=== PATIENT | male | born 1980 | race American Indian/Alaskan Native ===

== ENCOUNTER 2016-06-10 03:06 | Emergency (ER) | payer MEDICAID, OTHER ==
[2016-06-10 03:45] VITALS: BMI 26.6
--- NOTE | 2016-06-10 04:02 | ED PDOC ---
Arrival/HPI - General Chief Complaint: Psychiatric Evaluation Time Seen by Provider: 06/10/16 03:19 Historian: Patient - History of Present Illness Narrative History of Present Illness (Text): 06/10/16 04:02 Dereje Olson is a 35 year old male, with history of schizophrenia, anxiety, asthma, GERD, ETOH abuse and chronic back pain, presents to the emergency department for evaluation of auditory hallucinations. Admits to drinking alcohol "to block out the voices." Patient also reports of difficulty breathing while sleeping. Patient suggested to nursing staff that he wanted to hurt himself. Denies fever, chills, headache, dizziness, chest pain, nausea, vomiting , diarrhea, urinary symptoms, or any other complaints at this time. Time/Duration: 1-3 hours Symptom Onset: Gradual Symptom Course: Unchanged Severity Level: Mild Activities at Onset: Light Context: Home Past Medical History - Provider Review Nursing Documentation Reviewed: Yes - Infectious Disease Hx of Infectious Diseases: None - Tetanus Immunization Tetanus Immunization: Unknown - Cardiac Hx Cardiac Disorders: No Hx Hypertension: No - Pulmonary Hx Asthma: Yes - Neurological Hx Migraine: Yes - HEENT Hx HEENT Disorder: No - Renal Hx Renal Disorder: Yes Other/Comment: hx of kidney infection with sx. - Endocrine/Metabolic Hx Endocrine Disorders: No - Hematological/Oncological Hx Cancer: No - Integumentary Hx Dermatological Disorder: No - Musculoskeletal/Rheumatological Hx Musculoskeletal Disorders: No - Gastrointestinal Hx Gastrointestinal Disorders: No - Genitourinary/Gynecological Hx Sexually Transmitted Diseases: No - Psychiatric Hx Anxiety: Yes Hx Bipolar Disorder: Yes Hx Depression: Yes Hx Schizophrenia: Yes Hx Substance Use: Yes - Past Surgical History Past Surgical History: Non-Contributing - Surgical History Other/Comment: LEFT KIDNEY SX - Anesthesia Hx Anesthesia: Yes Hx Anesthesia Reactions: No - Suicidal Assessment Feels Threatened In Home Enviroment: No Family/Social History - Physician Review Nursing Documentation Reviewed: Yes Family/Social History: No Known Family HX Smoking Status: Heavy Smoker > 10 Cigarettes Daily Hx Alcohol Use: Yes Hx Substance Use: Yes Hx Substance Use Treatment: No Allergies/Home Meds Allergies/Adverse Reactions: Allergies No Known Allergies Allergy (Verified 06/10/16 03:44) Home Medications: Home Meds Medication Instructions Recorded Confirmed LORazepam [Ativan] 1 mg PO DAILY 05/19/16 05/19/16 Review of Systems - Physician Review All systems were reviewed & negative as marked: Yes - Review of Systems Constitutional: Normal. absent: Fatigue, Fevers Eyes: Normal Respiratory: Normal. absent: SOB, Cough Cardiovascular: Normal. absent: Chest Pain Neurological: Normal. absent: Headache, Dizziness Psychiatric: Suicidal Ideation, Other (auditory hallucinations ) Physical Exam Vital Signs Reviewed: Yes Vital Signs Temp Pulse Resp BP Pulse Ox 06/10/16 03:56 98.0 F 117 H 18 123/93 H 96 Temperature: Afebrile Blood Pressure: Normal Pulse: Tachycardic Respiratory Rate: Normal Appearance: Positive for: Well-Appearing, Non-Toxic, Comfortable Pain Distress: None Mental Status: Positive for: Alert and Oriented X 3 - Systems Exam Head: Present: Atraumatic, Normocephalic Pupils: Present: PERRL Extroacular Muscles: Present: EOMI Conjunctiva: Present: Normal Mouth: Present: Moist Mucous Membranes Respiratory/Chest: Present: Clear to Auscultation, Good Air Exchange. No: Respiratory Distress, Accessory Muscle Use Cardiovascular: Present: Regular Rate and Rhythm, Normal S1, S2. No: Murmurs Abdomen: Present: Normal Bowel Sounds. No: Tenderness, Distention, Peritoneal Signs Upper Extremity: Present: Normal Inspection. No: Cyanosis, Edema Lower Extremity: Present: Normal Inspection. No: Edema Neurological: Present: GCS=15, CN II-XII Intact, Speech Normal, Motor Func Grossly Intact, Normal Sensory Function Skin: Present: Warm, Dry, Normal Color. No: Rashes Psychiatric: Present: Alert, Oriented x 3, Suicidal Ideation, Hallucinations ( auditory) Medical Decision Making ED Course and Treatment: 06/10/16 04:14 Impression: A 35 year old male who presents to the emergency department for evaluation of auditory hallucinations and difficulty sleeping. Plan: -- EKG -- Labs -- Drug screen -- Chest X-ray -- Urinalysis -- Reassess and disposition Progress Notes: 06/10/16 05:56 Chest X-ray interpreted by me: No acute diseases EKG interpreted by me: NSR @ 89 bpm. Non specific T wave changes. - Lab Interpretations Lab Results: 06/10/16 04:10 06/10/16 04:10 Lab Results 06/10/16 04:34: Urine Color Yellow, Urine Appearance Clear, Urine pH 6.0, Ur Specific [place] 1.020, Urine Protein Negative, Urine Glucose (UA) Negative, Urine Ketones Negative, Urine Blood Negative, Urine Nitrate Negative, Urine Bilirubin Negative, Urine Urobilinogen 1.0 H, Ur Leukocyte Esterase Negative, Urine Opiates Screen Negative, Urine Methadone Screen Negative, Ur Barbiturates Screen Negative, Ur Phencyclidine Scrn Negative, Ur Amphetamines Screen Negative , U Benzodiazepines Scrn Negative, U Oth Cocaine Metabols Negative, U Cannabinoids Screen Negative 06/10/16 04:10: WBC 5.0, RBC 4.86, Hgb 15.4, Hct 42.7, MCV 87.9, MCH 31.7, MCHC 36.1, RDW 13.1, Plt Count 179, MPV 10.1, Gran % 41.8 L, Lymph % (Auto) 47.3 H, [place] % (Auto) 8.7 H, Eos % (Auto) 2.0, Baso % (Auto) 0.2, Gran # 2.08, Lymph # 2.4, [place] # 0.4, Eos # 0.1, Baso # 0.01, Sodium 144, Potassium 3.7, Chloride 104 , Carbon Dioxide 23, Anion Gap 21 H, BUN 7, Creatinine 1.1, Est GFR ( Amer) > 60, Est GFR (Non-Af Amer) > 60, Random Glucose 105, Calcium 9.0, Total Bilirubin 0.5, AST 34, ALT 23, Alkaline Phosphatase 51, Total Protein 8.0, Albumin 4.4, Globulin 3.6, Albumin/Globulin Ratio 1.2, Salicylates < 1 L, Acetaminophen < 10.0 L, Alcohol, Quantitative 169 H - RAD Interpretation Radiology Orders: 06/10/16 04:01 CHEST PORTABLE [RAD] Stat - Transfer of Care Patient signed out to Dr:: Janusz Other: sobriety/PES eval./final disposition - Scribe Statement Merlin Muhammad Provider Attestation: All medical record entries made by the Scribe were at my direction and personally dictated by me. I have reviewed the chart and agree that the record accurately reflects my personal performance of the history, physical exam, medical decision making, and the department course for this patient. I have also personally directed, reviewed, and agree with the discharge instructions and disposition. Disposition/Present on Arrival - Present on Arrival Any Indicators Present on Arrival: No History of DVT/PE: No History of Uncontrolled Diabetes: No Urinary Catheter: No History of Decub. Ulcer: No History Surgical Site Infection Following: None - Disposition Have Diagnosis and Disposition been Completed?: No Diagnosis: Schizophrenia, paranoid type Disposition Time: 07:00 Condition: STABLE
[2016-06-10 04:21] LABS: ADD MANUAL DIFF? NO
[2016-06-10 04:27] LABS: BASO # 0.01 K/mm3 (0.0-2.0); BASO % 0.2 % (0.0-3.0); EOS # 0.1 (0.0-0.7); GRAN # 2.08 (1.4-6.5); GRAN % 41.8 % (50.0-68.0); HEMATOCRIT 42.7 % (42.0-52.0); LYMPH # 2.4 (1.2-3.4); LYMPH % 47.3 % (22.0-35.0); MEAN CELL VOLUME 87.9 fL (80.0-105.0); MEAN CORPUSCULAR HEMOGLOBIN 31.7 pg (25.0-35.0); MEAN CORPUSCULAR HGB CONC 36.1 g/dl (31.0-37.0); MEAN PLATELET VOLUME 10.1 fl (7.0-11.0); MONO # 0.4 (0.1-0.6); MONO % 8.7 % (1.0-6.0); PLATELET COUNT 179 10^3/uL (120.0-450.0); RED CELL DISTRIBUTION WIDTH 13.1 % (11.5-14.5)
[2016-06-10 04:46] LABS: ALB/GLOB RATIO 1.2 (1.1-1.8); ALKALINE PHOSPHATASE 51 U/L (38-133); ALT/SGPT 23 U/L (7-56); AST/SGOT 34 U/L (15-59); BILIRUBIN,TOTAL 0.5 mg/dL (0.2-1.3); BLOOD UREA NITROGEN 7 mg/dL (7-21); CARBON DIOXIDE 23 mmol/L (21-33); CHLORIDE 104 mmol/L (95-110); GFR AFRICAN-AMERICAN > 60; GLUCOSE,RANDOM 105 mg/dL (70-110); POTASSIUM 3.7 mmol/L (3.6-5.0); SODIUM 144 mmol/L (132-148)
[2016-06-10 05:18] LABS: URINE BILIRUBIN NEGATIVE (NEGATIVE); URINE BLOOD NEGATIVE (NEGATIVE); URINE GLUCOSE (UA) NEGATIVE (NEGATIVE); URINE KETONE NEGATIVE (NEGATIVE); URINE LEUKOCYTE ESTERASE NEGATIVE Leu/uL (NEGATIVE); URINE PROTEIN NEGATIVE mg/dL (<30 mg/dL)
[2016-06-10 05:20] LABS: URINE APPEARANCE CLEAR (CLEAR); URINE COLOR YELLOW (YELLOW)
[2016-06-10 06:50] VITALS: O2SAT 99
--- NOTE | 2016-06-10 07:08 | ED PDOC ---
Physical Exam Vital Signs Reviewed: Yes Vital Signs Temp Pulse Resp BP Pulse Ox 06/10/16 08:23 98.2 F 88 18 130/80 99 06/10/16 07:20 80 16 129/77 99 06/10/16 06:49 84 16 114/67 99 06/10/16 03:56 98.0 F 117 H 18 123/93 H 96 Temperature: Afebrile Blood Pressure: Hypertensive Pulse: Tachycardic Respiratory Rate: Normal Medical Decision Making ED Course and Treatment: 06/10/16 07:07 Patient signed out to me by Dr. Reid at 07:00. Pending sobriety and PES evaluation. Patient has a history of schizophrenia, he presented for psychiatric evaluation of auditory hallucinations and suicidal ideation. Patient admitted to drinking alcohol. 06/10/16 08:45 Patient evaluated by PES and cleared for discharge. Outpatient f/u arranged. - Lab Interpretations Lab Results: 06/10/16 04:10 06/10/16 04:10 Lab Results 06/10/16 04:34: Urine Color Yellow, Urine Appearance Clear, Urine pH 6.0, Ur Specific [place] 1.020, Urine Protein Negative, Urine Glucose (UA) Negative, Urine Ketones Negative, Urine Blood Negative, Urine Nitrate Negative, Urine Bilirubin Negative, Urine Urobilinogen 1.0 H, Ur Leukocyte Esterase Negative, Urine Opiates Screen Negative, Urine Methadone Screen Negative, Ur Barbiturates Screen Negative, Ur Phencyclidine Scrn Negative, Ur Amphetamines Screen Negative , U Benzodiazepines Scrn Negative, U Oth Cocaine Metabols Negative, U Cannabinoids Screen Negative 06/10/16 04:10: WBC 5.0, RBC 4.86, Hgb 15.4, Hct 42.7, MCV 87.9, MCH 31.7, MCHC 36.1, RDW 13.1, Plt Count 179, MPV 10.1, Gran % 41.8 L, Lymph % (Auto) 47.3 H, [place] % (Auto) 8.7 H, Eos % (Auto) 2.0, Baso % (Auto) 0.2, Gran # 2.08, Lymph # 2.4, [place] # 0.4, Eos # 0.1, Baso # 0.01, Sodium 144, Potassium 3.7, Chloride 104 , Carbon Dioxide 23, Anion Gap 21 H, BUN 7, Creatinine 1.1, Est GFR ( Amer) > 60, Est GFR (Non-Af Amer) > 60, Random Glucose 105, Calcium 9.0, Total Bilirubin 0.5, AST 34, ALT 23, Alkaline Phosphatase 51, Total Protein 8.0, Albumin 4.4, Globulin 3.6, Albumin/Globulin Ratio 1.2, Salicylates < 1 L, Acetaminophen < 10.0 L, Alcohol, Quantitative 169 H - RAD Interpretation Radiology Orders: 06/10/16 04:01 CHEST PORTABLE [RAD] Stat - Scribe Statement The provider has reviewed the documentation as recorded by the Scribe Tram Gould Provider Scribe Attestation: All medical record entries made by the Scribe were at my direction and personally dictated by me. I have reviewed the chart and agree that the record accurately reflects my personal performance of the history, physical exam, medical decision making, and the department course for this patient. I have also personally directed, reviewed, and agree with the discharge instructions and disposition. Disposition/Present on Arrival - Present on Arrival Any Indicators Present on Arrival: No History of DVT/PE: No History of Uncontrolled Diabetes: No Urinary Catheter: No History of Decub. Ulcer: No History Surgical Site Infection Following: None - Disposition Have Diagnosis and Disposition been Completed?: Yes Diagnosis: Schizophrenia, paranoid type Disposition: HOME/ ROUTINE Disposition Time: 08:22 Patient Plan: Discharge Patient Problems: Current Active Problems Problem Status Diagnosed Schizophrenia, paranoid type Acute Condition: STABLE Discharge Instructions (ExitCare): Schizophrenia (ED)
--- NOTE | 2016-06-10 08:11 | RAD ---
HISTORY: medical clearance COMPARISON: 05/18/2016 FINDINGS: LUNGS: The lungs are well inflated and clear. PLEURA: No significant pleural effusion identified, no pneumothorax apparent. CARDIOVASCULAR: Normal. OSSEOUS STRUCTURES: No significant abnormalities. VISUALIZED UPPER ABDOMEN: Normal. OTHER FINDINGS: None. IMPRESSION: No active pulmonary disease.
[2016-06-10 08:24] VITALS: BP 130/80; PULSE 88; RESP 18; TEMP 98.2
--- NOTE | 2016-06-10 12:03 | CARD ---
APPROVED REPORT EKG Measurement Heart [id number] <Conclusion> Normal sinus rhythm Nonspecific T wave abnormality Abnormal ECG
== END 2016-06-10 08:25 | disposition home or self-care (01) ==
LOC: ED 03:06
DX: F20.0 Paranoid schizophrenia (principal); F41.9 Anxiety disorder, unspecified; F32.9 Major depressive disorder, single episode, unspecified

== ENCOUNTER 2016-07-27 14:34 | Observation (INO) | payer OTHER ==
[2016-07-27 14:35] VITALS: BMI 26.6
[2016-07-27 14:53] VITALS: TEMP 98
[2016-07-27 15:23] VITALS: O2SAT 98
[2016-07-27 16:57] LABS: URINE BILIRUBIN NEGATIVE (NEGATIVE); URINE BLOOD NEGATIVE (NEGATIVE); URINE GLUCOSE (UA) NEGATIVE (NEGATIVE); URINE KETONE NEGATIVE (NEGATIVE); URINE LEUKOCYTE ESTERASE NEGATIVE Leu/uL (NEGATIVE); URINE PROTEIN NEGATIVE mg/dL (<30 mg/dL)
[2016-07-27 16:58] LABS: URINE APPEARANCE CLEAR (CLEAR); URINE COLOR YELLOW (YELLOW)
[2016-07-27 17:00] LABS: ADD MANUAL DIFF? NO
[2016-07-27 17:23] LABS: ALB/GLOB RATIO 1.1 (1.1-1.8); ALKALINE PHOSPHATASE 54 U/L (38-133); ALT/SGPT 43 U/L (7-56); AST/SGOT 31 U/L (15-59); BILIRUBIN,TOTAL 0.6 mg/dL (0.2-1.3); BLOOD UREA NITROGEN 11 mg/dL (7-21); CALCIUM 9.4 mg/dL (8.4-10.5); CARBON DIOXIDE 25 mmol/L (21-33); CHLORIDE 100 mmol/L (98-107); GFR AFRICAN-AMERICAN > 60; GLUCOSE,RANDOM 87 mg/dL (70-110); POTASSIUM 3.8 mmol/L (3.6-5.0); SODIUM 138 mmol/L (132-148); TOTAL PROTEIN 7.7 g/dL (5.8-8.3)
[2016-07-27 17:36] LABS: BASO # 0.04 K/mm3 (0.0-2.0); BASO % 0.7 % (0.0-3.0); EOS # 0.1 (0.0-0.7); EOS % 0.9 % (1.5-5.0); GRAN # 3.56 (1.4-6.5); GRAN % 66.6 % (50.0-68.0); HEMATOCRIT 40.3 % (42.0-52.0); LYMPH # 1.3 (1.2-3.4); LYMPH % 24.5 % (22.0-35.0); MEAN CORPUSCULAR HEMOGLOBIN 31.7 pg (25.0-35.0); MEAN PLATELET VOLUME 10.2 fl (7.0-11.0); MONO # 0.4 (0.1-0.6); MONO % 7.3 % (1.0-6.0); PLATELET COUNT 205 10^3/uL (120.0-450.0); RED CELL DISTRIBUTION WIDTH 13.3 % (11.5-14.5); WHITE BLOOD COUNT 5.4 10^3/ul (4.5-11.0)
--- NOTE | 2016-07-27 19:21 | ED PDOC ---
Arrival/HPI - General Chief Complaint: Anxiety Time Seen by Provider: 07/27/16 14:58 Historian: Patient - History of Present Illness Narrative History of Present Illness (Text): 07/27/16 19:13 Patient with past medical history depression, anxiety, schizophrenia, presents to the emergency room after taking 3 tablets of trazodone in the morning and another 3 tablets this afternoon prior to arrival, patient states that he took the medication to get high from the pills because he has been feeling depressed lately. Patient states that he was on trazodone in the past for anxiety but he stopped taking it 3 months ago because he felt well and felt like he didn't need to take it any longer. Patient reports after taking the trazodone he felt dizzy, short of breath and cold, hence evaluation today in the emergency room. Patient denies any suicidal ideation, intent, or plan. Otherwise: (-) trauma, (- ) fever, (-)headache, (-) dyspnea, (-) vomiting, (-) substance abuse, (-) hallucinations, (-) homicidal ideation. Of note patient states that he also receives antidepressant injections every 2 weeks from his psychiatrist. Past Medical History - Provider Review Nursing Documentation Reviewed: Yes - Infectious Disease Hx of Infectious Diseases: None - Tetanus Immunization Tetanus Immunization: Unknown - Cardiac Hx Cardiac Disorders: No Hx Hypertension: No - Pulmonary Hx Tuberculosis: No - Neurological HX Cerebrovascular Accident: No Hx Seizures: No - HEENT Hx HEENT Disorder: No - Renal Hx Renal Disorder: Yes Other/Comment: hx of kidney infection with sx. - Endocrine/Metabolic Hx Endocrine Disorders: No - Hematological/Oncological Hx Cancer: No - Integumentary Hx Dermatological Disorder: No - Musculoskeletal/Rheumatological Hx Musculoskeletal Disorders: No - Gastrointestinal Hx Gastrointestinal Disorders: No - Genitourinary/Gynecological Hx Sexually Transmitted Diseases: No - Psychiatric Hx Anxiety: Yes Hx Bipolar Disorder: Yes Hx Depression: Yes Hx Schizophrenia: Yes Hx Substance Use: Yes - Past Surgical History Past Surgical History: Non-Contributing - Surgical History Other/Comment: LEFT KIDNEY SX - Anesthesia Hx Anesthesia: Yes Hx Anesthesia Reactions: No - Suicidal Assessment Feels Threatened In Home Enviroment: No Family/Social History - Physician Review Nursing Documentation Reviewed: Yes Family/Social History: No Known Family HX Smoking Status: Heavy Smoker > 10 Cigarettes Daily Hx Alcohol Use: Yes Hx Substance Use: Yes Hx Substance Use Treatment: No Allergies/Home Meds Allergies/Adverse Reactions: Allergies No Known Allergies Allergy (Verified 07/27/16 14:53) Home Medications: Home Meds Medication Instructions Recorded Confirmed LORazepam [Ativan] 1 mg PO DAILY 05/19/16 05/19/16 Review of Systems - Review of Systems Constitutional: Normal. absent: Fatigue, Weight Change, Fevers Respiratory: Normal, SOB. absent: Cough, Sputum Cardiovascular: Normal. absent: Chest Pain, Palpitations, Edema Gastrointestinal: Normal. absent: Abdominal Pain, Stool Changes, Appetite Changes Musculoskeletal: Normal. absent: Arthralgias, Back Pain, Neck Pain Skin: Normal. absent: Rash, Pruritis, Skin Lesions Neurological: Normal. absent: Headache, Dizziness, Focal Weakness Psychiatric: Normal, Anxiety, Depression. absent: Suicidal Ideation Physical Exam - Physical Exam Narrative Physical Exam (Text): 07/27/16 19:22 GENERAL APPEARANCE: Patient is awake, alert, oriented x 3, in no acute distress. Patient is speaking in full sentences, breathing easy and unlabored, in no respiratory distress. SKIN: Warm, dry; (-) cyanosis. HEAD: (-) scalp swelling, (-) scalp tenderness. EYES: (-) conjunctival pallor, (-) scleral icterus, (-) nystagmus. ENMT: Mucous membranes moist. Airway patent: (-) stridor. NECK: (-) tenderness, (-) stiffness, (-) lymphadenopathy. CHEST AND RESPIRATORY: (-) rales, (-) rhonchi, (-) wheezes; breath sounds equal. ABDOMEN: Soft, (-) distention, (-) tenderness, (-) guarding. NEURO AND PSYCH: Mental status as above. Affect: Normal. Memory: Intact. 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 Strength and DTRs symmetric. Vital Signs Temp Pulse Resp BP Pulse Ox 07/27/16 19:00 74 18 120/65 98 07/27/16 16:05 79 18 121/63 98 07/27/16 15:23 86 18 118/65 98 07/27/16 14:48 98 F 92 H 18 120/67 95 Medical Decision Making ED Course and Treatment: 07/27/16 19:22 35 yo M with past medical history anxiety, depression, schizophrenia, presents to the emergency room after ingesting 6 tablets of trazodone in order to get high. Plan: -- Labs -- PES evaluation -- Urinalysis -- EKG -- CXR -- Poison control consultation -- Patient placed in ED observation - Lab Interpretations Lab Results: Lab Results 07/27/16 15:00: Urine Color Yellow, Urine Appearance Clear, Urine pH 6.0, Ur Specific [place] 1.015, Urine Protein Negative, Urine Glucose (UA) Negative, Urine Ketones Negative, Urine Blood Negative, Urine Nitrate Negative, Urine Bilirubin Negative, Urine Urobilinogen 1.0 H, Ur Leukocyte Esterase Negative - RAD Interpretation Radiology Orders: 07/27/16 15:47 CHEST PORTABLE [RAD] Stat ED OBSERVATION Date of observation admission: 07/27/16 Time of observation admission: 15:48 - Observation admission statement Patient is being placed in observation because:: Patient will need consultation with PES and poison control. - Goals of Observation Goals of observation are:: To monitor patient's signs and symptoms. - Progress Note Progress Note: 07/27/16 17:45 EKG: NSR at 66 bpm, normal QT interval, (-) acute ST changes, as read by ADELINA. CXR : NAD, as read by PA Labs reviewed and are within normal limits. Poison control called, case discussed with Ed, reports that if the patient truly ingested a significant amount of trazodone he should experience [employer] depression, hypotension and QT prolongation. Recommends 4-6 hours of monitoring in the ED and if patient does not present any of the following symptoms that the patient can be safely discharged. On reevaluation, patient remains awake, alert, oriented 3, in no acute distress. Breathing is easy and unlabored. Repeat neuro exam shows no focal findings. 07/27/16 18:30 At this time patient is medically cleared for PES evaluation. PES consultation obtained. Patient seen and evaluated by PES counselor. As per PES, patient is cleared psychiatrically and recommends no further inpatient psychiatric treatment at this time. As per PES counselor, patient follows up at the [facility] and that he has a follow-up with his psychiatrist and the following day. Based on history, exam and diagnostic results plan will be for the patient follow-up. Patient remains awake, alert, and oriented x3. Patient is calm, cooperative and answering questions appropriately. Neuro exam shows no focal findings. VSS, P80 BP121/74 R17 [id number]%RA. Patient states he fully agrees with and understands discharge instructions. States that he agrees with the plan and disposition. Verbalized and repeated discharge instructions and plan. I have given the patient opportunity to ask any additional questions. Follow up with psychiatrist in 1-2 days without fail. Return to the emergency room at any time for any new or worsening symptoms. - PA / TIP PRINTER / Resident Statement MD/DO has reviewed & agrees with the documentation as recorded. Disposition/Present on Arrival - Present on Arrival Any Indicators Present on Arrival: No History of DVT/PE: No History of Uncontrolled Diabetes: No Urinary Catheter: No History of Decub. Ulcer: No History Surgical Site Infection Following: None - Disposition Have Diagnosis and Disposition been Completed?: Yes Diagnosis: Generalized anxiety disorder, Schizophrenia, Medication overdose, Depression Disposition: HOME/ ROUTINE Disposition Time: 15:48 (Patient placed in ED observation) Patient Plan: Discharge Condition: STABLE
[2016-07-27 21:19] VITALS: BP 121/74; PULSE 80; RESP 17
--- NOTE | 2016-07-28 07:08 | RAD ---
HISTORY: PES eval COMPARISON: Chest x-ray performed 06/10/16 TECHNIQUE: Chest, one view. FINDINGS: LUNGS: No focal consolidation. Please note that chest x-ray has limited sensitivity for the detection of pulmonary masses. PLEURA: No significant pleural effusion identified. No definite pneumothorax . CARDIOVASCULAR: The cardiomediastinal silhouette appears within normal limits of size. OSSEOUS STRUCTURES: No acute osseous abnormality identified. VISUALIZED UPPER ABDOMEN: Unremarkable. OTHER FINDINGS: None. IMPRESSION: No active disease.
--- NOTE | 2016-07-28 11:54 | CARD ---
APPROVED REPORT EKG Measurement Heart [id number] <Conclusion> Normal sinus rhythm Normal ECG Improve repolarization changes c/w ECG 06/10/16
== END 2016-07-27 20:55 | disposition home or self-care (01) ==
LOC: ED 14:34 → EROBSV 15:48
PROVIDERS: ADMIT Emergency Medicine; ATTEND Emergency Medicine
DX: F41.1 Generalized anxiety disorder (principal); F20.9 Schizophrenia, unspecified; F32.9 Major depressive disorder, single episode, unspecified; T43.211A Poisoning by selective serotonin and norepinephrine reuptake inhibitors, accidental (unintentional), initial encounter; R42 Dizziness and giddiness
CPT/HCPCS: 71010; 80053; 80320; 80324; 80329; 80345; 80346; 80349; 80353; 80358; 80361; 81003; 83992; 85025; 93005; 99285; G0378

== ENCOUNTER 2016-12-07 03:19 | Emergency (ER) | payer MEDICAID, OTHER ==
[2016-12-07 03:20] VITALS: BMI 26.6
[2016-12-07 04:14] LABS: BASO # 0.03 K/mm3 (0.0-2.0); BASO % 0.5 % (0.0-3.0); EOS # 0.1 (0.0-0.7); EOS % 1.6 % (1.5-5.0); GRAN # 2.54 (1.4-6.5); GRAN % 41.5 % (50.0-68.0); HEMATOCRIT 42.5 % (42.0-52.0); LYMPH % 49.2 % (22.0-35.0); MEAN CELL VOLUME 88.4 fl (80.0-105.0); MEAN CORPUSCULAR HEMOGLOBIN 32.4 pg (25.0-35.0); MEAN CORPUSCULAR HGB CONC 36.7 g/dl (31.0-37.0); MEAN PLATELET VOLUME 9.7 fl (7.0-11.0); MONO # 0.4 (0.1-0.6); MONO % 7.2 % (1.0-6.0); RED CELL DISTRIBUTION WIDTH 12.7 % (11.5-14.5); WHITE BLOOD COUNT 6.1 10^3/ul (4.5-11.0)
[2016-12-07 04:18] LABS: ALB/GLOB RATIO 1.4 (1.1-1.8); ALKALINE PHOSPHATASE 60 U/L (38-126); ALT/SGPT 37 U/L (7-56); AST/SGOT 32 U/L (17-59); BILIRUBIN,TOTAL 0.6 mg/dL (0.2-1.3); BLOOD UREA NITROGEN 8 mg/dL (7-21); CALCIUM 9.5 mg/dL (8.4-10.5); CARBON DIOXIDE 24 mmol/L (21-33); CHLORIDE 110 mmol/L (98-107); GFR AFRICAN-AMERICAN > 60; GLUCOSE,RANDOM 98 mg/dL (70-110); POTASSIUM 3.8 mmol/L (3.6-5.0); SODIUM 151 mmol/L (132-148); TOTAL PROTEIN 8.4 g/dL (5.8-8.3)
[2016-12-07 04:37] LABS: URINE BILIRUBIN NEGATIVE (NEGATIVE); URINE BLOOD NEGATIVE (NEGATIVE); URINE GLUCOSE (UA) NEGATIVE (NEGATIVE); URINE KETONE NEGATIVE (NEGATIVE); URINE LEUKOCYTE ESTERASE NEGATIVE Leu/uL (NEGATIVE); URINE PROTEIN NEGATIVE mg/dL (<30 mg/dL); URINE UROBILINOGEN 0.2 E.U./dL (<1 E.U./dL)
[2016-12-07 04:38] LABS: URINE COLOR YELLOW (YELLOW)
[2016-12-07 04:39] LABS: URINE APPEARANCE CLEAR (CLEAR)
--- NOTE | 2016-12-07 06:25 | ED PDOC ---
Arrival/HPI - General Chief Complaint: Psychiatric Evaluation Time Seen by Provider: 12/07/16 03:26 Historian: Patient EM Caveat: Uncooperative - History of Present Illness Narrative History of Present Illness (Text): 12/07/16 03:42 37 year old male, whose past medical history includes depression, anxiety, and schizophrenia, presents to the emergency department complaining of hearing voices. Patient states the voices are saying "they want to kill me". He reports that he isn't able to sleep. Patient was yelling through his entry to the emergency department. HPI and ROS limited to to patients mental status and being uncooperative. Time/Duration: Other Symptom Onset: Gradual Symptom Course: Unchanged Past Medical History - Provider Review Nursing Documentation Reviewed: Yes - Infectious Disease Hx of Infectious Diseases: None - Tetanus Immunization Tetanus Immunization: Unknown - Cardiac Hx Cardiac Disorders: No Hx Hypertension: No - Pulmonary Hx Tuberculosis: No - Neurological HX Cerebrovascular Accident: No Hx Seizures: No - HEENT Hx HEENT Disorder: No - Renal Hx Renal Disorder: Yes Other/Comment: hx of kidney infection with sx. - Endocrine/Metabolic Hx Endocrine Disorders: No - Hematological/Oncological Hx Cancer: No - Integumentary Hx Dermatological Disorder: No - Musculoskeletal/Rheumatological Hx Musculoskeletal Disorders: No - Gastrointestinal Hx Gastrointestinal Disorders: No - Genitourinary/Gynecological Hx Sexually Transmitted Diseases: No - Psychiatric Hx Anxiety: Yes Hx Bipolar Disorder: Yes Hx Depression: Yes Hx Schizophrenia: Yes Hx Substance Use: Yes - Past Surgical History Past Surgical History: Non-Contributing - Surgical History Other/Comment: LEFT KIDNEY SX - Anesthesia Hx Anesthesia: Yes Hx Anesthesia Reactions: No - Suicidal Assessment Feels Threatened In Home Enviroment: No Family/Social History - Physician Review Nursing Documentation Reviewed: Yes Family/Social History: No Known Family HX Smoking Status: Heavy Smoker > 10 Cigarettes Daily Hx Alcohol Use: Yes Hx Substance Use: Yes Hx Substance Use Treatment: No Allergies/Home Meds Allergies/Adverse Reactions: Allergies No Known Allergies Allergy (Verified 07/27/16 14:53) Home Medications: Home Meds Medication Instructions Recorded Confirmed LORazepam [Ativan] 1 mg PO DAILY 05/19/16 12/07/16 Review of Systems - Physician Review All systems were reviewed & negative as marked: Yes - Review of Systems Systems not reviewed;Unavailable: Uncooperative Physical Exam Vital Signs Reviewed: Yes Vital Signs Temp Pulse Resp BP Pulse Ox 12/07/16 06:00 84 18 136/83 99 12/07/16 04:00 80 18 139/86 98 12/07/16 03:20 98.9 F 102 H 18 134/94 H 97 Temperature: Afebrile Blood Pressure: Normal Pulse: Tachycardic Respiratory Rate: Normal Appearance: Positive for: Well-Appearing, Non-Toxic, Comfortable Pain Distress: None Mental Status: Positive for: Alert and Oriented X 3 - Systems Exam Head: Present: Atraumatic, Normocephalic Pupils: Present: PERRL Extroacular Muscles: Present: EOMI Conjunctiva: Present: Normal Mouth: Present: Moist Mucous Membranes Neck: Present: Normal Range of Motion Respiratory/Chest: Present: Clear to Auscultation, Good Air Exchange. No: Respiratory Distress, Accessory Muscle Use Cardiovascular: Present: Regular Rate and Rhythm, Normal S1, S2. No: Murmurs Abdomen: Present: Normal Bowel Sounds. No: Tenderness, Distention, Peritoneal Signs Back: Present: Normal Inspection Upper Extremity: Present: Normal Inspection. No: Cyanosis, Edema Lower Extremity: Present: Normal Inspection. No: Edema Neurological: Present: GCS=15, CN II-XII Intact, Speech Normal Skin: Present: Warm, Dry, Normal Color. No: Rashes Psychiatric: Present: Alert, Oriented x 3, Normal Insight, Normal Concentration , Other (Hearing voices ) Medical Decision Making ED Course and Treatment: 12/07/16 03:34 Impression: 36 year old male present complaining of hearing voices and for psych evaluation. Plan: -- EKG -- Labs -- Chest one view x-ray -- Reassess and disposition Progress Notes: EKG shows at BPM with with no prior for comparison. Interpreted by me. - Lab Interpretations Lab Results: 12/07/16 03:45 12/07/16 03:45 Lab Results 12/07/16 04:10: Urine Opiates Screen Negative, Urine Methadone Screen Negative, Ur Barbiturates Screen Negative, Ur Phencyclidine Scrn Negative, Ur Amphetamines Screen Negative, U Benzodiazepines Scrn Negative, U Oth Cocaine Metabols Negative, U Cannabinoids Screen Negative 12/07/16 04:10: Urine Color Yellow, Urine Appearance Clear, Urine pH 6.0, Ur Specific [place] <= 1.005, Urine Protein Negative, Urine Glucose (UA) Negative, Urine Ketones Negative, Urine Blood Negative, Urine Nitrate Negative, Urine Bilirubin Negative, Urine Urobilinogen 0.2, Ur Leukocyte Esterase Negative 12/07/16 03:45: Alcohol, Quantitative 269 H 12/07/16 03:45: Salicylates < 1 L, Acetaminophen < 10.0 L 12/07/16 03:45: Sodium 151 H, Potassium 3.8, Chloride 110 H, Carbon Dioxide 24, Anion Gap 21 H, BUN 8, Creatinine 0.8, Est GFR ( Amer) > 60, Est GFR (Non -Af Amer) > 60, Random Glucose 98, Calcium 9.5, Total Bilirubin 0.6, AST 32, ALT 37, Alkaline Phosphatase 60, Total Protein 8.4 H, Albumin 4.9 H, Globulin 3.4, Albumin/Globulin Ratio 1.4 12/07/16 03:45: WBC 6.1, RBC 4.81, Hgb 15.6, Hct 42.5, MCV 88.4, MCH 32.4, MCHC 36.7, RDW 12.7, Plt Count 250, MPV 9.7, Gran % 41.5 L, Lymph % (Auto) 49.2 H, [place] % (Auto) 7.2 H, Eos % (Auto) 1.6, Baso % (Auto) 0.5, Gran # 2.54, Lymph # 3.0, [place] # 0.4, Eos # 0.1, Baso # 0.03 I have reviewed the lab results: Yes - RAD Interpretation Radiology Orders: 12/07/16 03:27 CHEST ONE VIEW [RAD] Stat - EKG Interpretation Interpreted by ED Physician: Yes Type: 12 lead EKG - Scribe Statement The provider has reviewed the documentation as recorded by the Scribe Chikis Velez All medical record entries made by the Scribe were at my direction and personally dictated by me. I have reviewed the chart and agree that the record accurately reflects my personal performance of the history, physical exam, medical decision making, and the department course for this patient. I have also personally directed, reviewed, and agree with the discharge instructions and disposition. Disposition/Present on Arrival - Present on Arrival Any Indicators Present on Arrival: No History of DVT/PE: No History of Uncontrolled Diabetes: No Urinary Catheter: No History of Decub. Ulcer: No History Surgical Site Infection Following: None - Disposition Have Diagnosis and Disposition been Completed?: Yes Diagnosis: Schizophrenia Disposition Time: 07:00 Condition: UNKNOWN Forms: [employer] (Northern Irish)
--- NOTE | 2016-12-07 07:06 | ED PDOC ---
Physical Exam Vital Signs Reviewed: Yes Vital Signs Temp Pulse Resp BP Pulse Ox 12/07/16 08:00 79 16 132/63 98 12/07/16 06:00 84 18 136/83 99 12/07/16 04:00 80 18 139/86 98 12/07/16 03:20 98.9 F 102 H 18 134/94 H 97 Temperature: Afebrile Blood Pressure: Hypertensive Pulse: Tachycardic Respiratory Rate: Normal Appearance: Positive for: Well-Appearing, Non-Toxic, Comfortable Pain Distress: None Mental Status: Positive for: Alert and Oriented X 3 Medical Decision Making ED Course and Treatment: 12/07/16 07:04: Patient sign out from overnight. Pending psych evaluation. Will reassess and disposition. 12/07/16 07:35: Patient is resting comfortably in bed. Denies any complaints. 12/07/16 09:00: Patient denies any suicidal/homicidal ideation. 12/07/16 09:40: Patient was evaluated by PES. Patient's symptoms have resolved. Cleared for dc home. pt in no distress and denies complaints. States he would like to be dc'd home at this time states he feels comfortable being dc'd home with outpatient f/u denies suicidal or homicidal ideations Pt states he understands to return to the ER right away for new or worsening symptoms or for inability to f/u with PMD or specialist as instructed. Patient states that he fully agrees with and understands discharge instructions. States that he agrees with the plan and disposition. Verbalized and repeated discharge instructions and plan. I have given the patient opportunity to ask any additional questions. - Lab Interpretations Lab Results: 12/07/16 03:45 12/07/16 03:45 Lab Results 12/07/16 04:10: Urine Opiates Screen Negative, Urine Methadone Screen Negative, Ur Barbiturates Screen Negative, Ur Phencyclidine Scrn Negative, Ur Amphetamines Screen Negative, U Benzodiazepines Scrn Negative, U Oth Cocaine Metabols Negative, U Cannabinoids Screen Negative 12/07/16 04:10: Urine Color Yellow, Urine Appearance Clear, Urine pH 6.0, Ur Specific [place] <= 1.005, Urine Protein Negative, Urine Glucose (UA) Negative, Urine Ketones Negative, Urine Blood Negative, Urine Nitrate Negative, Urine Bilirubin Negative, Urine Urobilinogen 0.2, Ur Leukocyte Esterase Negative 12/07/16 03:45: Alcohol, Quantitative 269 H 12/07/16 03:45: Salicylates < 1 L, Acetaminophen < 10.0 L 12/07/16 03:45: Sodium 151 H, Potassium 3.8, Chloride 110 H, Carbon Dioxide 24, Anion Gap 21 H, BUN 8, Creatinine 0.8, Est GFR ( Amer) > 60, Est GFR (Non -Af Amer) > 60, Random Glucose 98, Calcium 9.5, Total Bilirubin 0.6, AST 32, ALT 37, Alkaline Phosphatase 60, Total Protein 8.4 H, Albumin 4.9 H, Globulin 3.4, Albumin/Globulin Ratio 1.4 12/07/16 03:45: WBC 6.1, RBC 4.81, Hgb 15.6, Hct 42.5, MCV 88.4, MCH 32.4, MCHC 36.7, RDW 12.7, Plt Count 250, MPV 9.7, Gran % 41.5 L, Lymph % (Auto) 49.2 H, [place] % (Auto) 7.2 H, Eos % (Auto) 1.6, Baso % (Auto) 0.5, Gran # 2.54, Lymph # 3.0, [place] # 0.4, Eos # 0.1, Baso # 0.03 - RAD Interpretation Radiology Orders: 12/07/16 03:27 CHEST ONE VIEW [RAD] Stat - Scribe Statement The provider has reviewed the documentation as recorded by the Scribe Ca Sarabia Provider Scribe Attestation: All medical record entries made by the Scribe were at my direction and personally dictated by me. I have reviewed the chart and agree that the record accurately reflects my personal performance of the history, physical exam, medical decision making, and the department course for this patient. I have also personally directed, reviewed, and agree with the discharge instructions and disposition. Disposition/Present on Arrival - Present on Arrival Any Indicators Present on Arrival: No History of DVT/PE: No History of Uncontrolled Diabetes: No Urinary Catheter: No History of Decub. Ulcer: No History Surgical Site Infection Following: None - Disposition Have Diagnosis and Disposition been Completed?: Yes Diagnosis: Schizophrenia Disposition: HOME/ ROUTINE Disposition Time: 09:44 Patient Plan: Discharge Patient Problems: Current Active Problems Problem Status Onset Schizophrenia Acute Condition: UNKNOWN Discharge Instructions (ExitCare): Hallucinations (ED) Additional Instructions: PLEASE RETURN TO THE EMERGENCY DEPARTMENT FOR NEW OR WORSENING SYMPTOMS. RETURN RIGHT AWAY IF YOU CANNOT FOLLOW UP WITH YOUR PRIMARY CARE DOCTOR, CLINIC, OR SPECIALIST IN 1-2 DAYS. Referrals: Dianna eJnkins MD [Staff Provider] - Follow up with primary [facility] [Outside] - Follow up with primary Forms: [employer] (Turkmen)
--- NOTE | 2016-12-07 08:22 | RAD ---
PROCEDURE: CHEST RADIOGRAPH, 1 VIEW HISTORY: r/o infiltrate COMPARISON: 07/27/2016. FINDINGS: LUNGS: The lungs are clear. PLEURA: No pneumothorax or pleural fluid seen. CARDIOVASCULAR: Normal. OSSEOUS STRUCTURES: No significant abnormalities. VISUALIZED UPPER ABDOMEN: Normal. OTHER FINDINGS: None. IMPRESSION: No active pulmonary disease.
[2016-12-07 08:45] VITALS: RESP 16; O2SAT 98
[2016-12-07 09:51] VITALS: BP 126/70; PULSE 73; TEMP 98.3
--- NOTE | 2016-12-07 14:23 | CARD ---
APPROVED REPORT EKG Measurement Heart [id number] <Conclusion> Normal sinus rhythm Normal ECG
== END 2016-12-07 09:53 | disposition home or self-care (01) ==
LOC: ED 03:19
DX: F20.9 Schizophrenia, unspecified (principal)

== ENCOUNTER 2017-05-30 07:20 | Inpatient (IN) | payer MEDICAID, OTHER ==
[2017-05-30 07:20] VITALS: BMI 26.6
[2017-05-30] MEDS ORDERED: Albuterol-Ipratrop 3 mg / 0.5 (3 ml) UD IH STA (07:38)
--- NOTE | 2017-05-30 07:46 | ED PDOC ---
Arrival/HPI - General Chief Complaint: Psychiatric Evaluation Time Seen by Provider: 05/30/17 07:26 Historian: Patient, EMS - History of Present Illness Narrative History of Present Illness (Text): 05/30/17 07:37 pt p/w + sudden onset of sob just prior to ED arrival, + ? wheezing; pt called 911 as a result; pt also states he has not slept for at least a day; pt's longtime girlfriend (Rosalinda?) who lives with him states pt has not slept for 3 days at least; of extreme concern, pt's auditory/visual hallucinations are severe, per pt as well as girlfriend, pt is concern about these drones that are outside of his apt and can see into his apt and follow him; pt is also hearing men/women/Gods voice coming from downstairs and they are threatening him as well as talking about his girlfriend; per Pt's girlfriend, pt's concern behavior is worsening, with regards to hearing voices as well as seeing things; she states that patient is hearing a neighbors young boy's voice and patient would want to potentially start a fight with him; pt states he is not depressed/ Suicidal/homicidal ideations; pt states the voices are not telling him to do things but he is worried that the voices are threatening his girlfriend; pt states currently no fever/chills/sweats, no cp/palpitations, no abd pain, no n/v , no numbness/tingling, no urinary/bowel changes, no diarrhea, no other complaints; pt is here for further eval; pt's without other complaints per patient/girlfriend, pt has not taken his psych medications for ~ 1 year Time/Duration: > week Symptom Onset: Sudden Symptom Course: Worsening Activities at Onset: Rest, Emotional Upset Context: Home (pt lives with his long time girlfriend of many years) Past Medical History - Provider Review Nursing Documentation Reviewed: Yes - Travel History Have you recently traveled outside [place] w/in the past 3 mons?: No - Past History Past History: No Previous - Infectious Disease Hx of Infectious Diseases: None - Tetanus Immunization Tetanus Immunization: Unknown - Cardiac Hx Cardiac Disorders: No Hx Hypertension: No - Pulmonary Hx Tuberculosis: No - Neurological HX Cerebrovascular Accident: No Hx Seizures: No - HEENT Hx HEENT Disorder: No - Renal Hx Renal Disorder: Yes Other/Comment: hx of kidney infection with sx. - Endocrine/Metabolic Hx Endocrine Disorders: No - Hematological/Oncological Hx Cancer: No - Integumentary Hx Dermatological Disorder: No - Musculoskeletal/Rheumatological Hx Musculoskeletal Disorders: No - Gastrointestinal Hx Gastrointestinal Disorders: No - Genitourinary/Gynecological Hx Sexually Transmitted Diseases: No - Psychiatric Hx Anxiety: Yes Hx Bipolar Disorder: Yes Hx Depression: Yes Hx Schizophrenia: Yes Hx Substance Use: Yes - Past Surgical History Past Surgical History: Non-Contributing - Surgical History Other/Comment: LEFT KIDNEY SX - Anesthesia Hx Anesthesia: Yes Hx Anesthesia Reactions: No - Suicidal Assessment Feels Threatened In Home Enviroment: No Family/Social History - Physician Review Nursing Documentation Reviewed: Yes Family/Social History: No Known Family HX Smoking Status: Heavy Smoker > 10 Cigarettes Daily Hx Alcohol Use: Yes Frequency of alcohol use: Socially Hx Substance Use: Yes Hx Substance Use Treatment: No Allergies/Home Meds Allergies/Adverse Reactions: Allergies No Known Allergies Allergy (Verified 05/30/17 07:31) Home Medications: Home Meds Medication Instructions Recorded Confirmed LORazepam [Ativan] 1 mg PO DAILY 05/19/16 05/30/17 Review of Systems - Review of Systems Constitutional: Normal Eyes: Normal ENT: Normal Respiratory: SOB, Wheezing Cardiovascular: Normal Gastrointestinal: Normal Genitourinary Male: Normal Musculoskeletal: Normal Skin: Normal Neurological: Normal Endocrine: Normal Hemo/Lymphatic: Normal Psychiatric: Other (auditory/visual hallucinations) Physical Exam Vital Signs Reviewed: Yes Vital Signs Temp Pulse Resp BP Pulse Ox 05/30/17 10:00 98.2 F 72 18 134/79 97 05/30/17 08:59 80 18 133/72 98 05/30/17 07:21 97.6 F 88 18 186/94 H 98 Temperature: Afebrile Blood Pressure: Hypertensive Pulse: Regular Respiratory Rate: Normal Appearance: Positive for: Well-Appearing, Non-Toxic, Other (resting in bed, alert/awake, cooperative, NAD, follows command with ease; GCS = 15, oriented x 2 (not to date/time)) Pain Distress: None Mental Status: Positive for: other (alert/awake, oriented x 2) - Systems Exam Head: Present: Atraumatic, Normocephalic Pupils: Present: PERRL, Other (no photophobia, sclera anicteric, no nystagmus, visual field intact b/l) Extroacular Muscles: Present: EOMI Conjunctiva: Present: Normal Ears: Present: Normal Mouth: Present: Moist Mucous Membranes, Normal Teeth Pharnyx: Present: Normal Nose (External): Present: Atraumatic Nose (Internal): Present: Normal Inspection Neck: Present: Normal Range of Motion, Trachea Midline, Other (intact ROM, no midline tenderness, no nuchal rigidity, no meningeal signs, no step off). No: MIDLINE TENDERNESS Respiratory/Chest: Present: Clear to Auscultation, Good Air Exchange, Other ( basiliar coarse breath sounds noted, no w/r/r, no tachypenia) Cardiovascular: Present: Regular Rate and Rhythm, Normal S1, S2, Other (no m/r/r ). No: Murmurs Abdomen: Present: Normal Bowel Sounds, Other (well nourished male, no focal tenderness, no masses/rebound/guarding/rigidity, no iqbal's sign, no mcburney' s point tenderness). No: Tenderness Back: Present: Normal Inspection. No: CVA Tenderness, Midline Tenderness Upper Extremity: Present: Normal Inspection, Normal ROM, NORMAL PULSES, Neurovascularly Intact, Capillary Refill < 2s Lower Extremity: Present: Normal Inspection, NORMAL PULSES, Normal ROM, Neurovascularly Intact, Capillary Refill < 2 s Neurological: Present: GCS=15, CN II-XII Intact, Speech Normal Skin: Present: Warm, Normal Color, Other (cap refill < 1sec, no ulcerations, no petechiae) Psychiatric: Present: Alert, Other (oriented x 2 (not to date/time), poor insight, disorganized thought, paranoid ideations). No: Normal Insight Medical Decision Making ED Course and Treatment: 05/30/17 07:25 Impression: auditory/visual hallucinations; insomnia i have consider all the differential diagnosis regarding pt's chief medical complaints/clinical findings, including but are not limited to: auditory/visual hallucination; insomnia A/P: auditory/visual hallucinations; insomnia - labs - iv - xray - ekg - observe - supportive care 0900 pt is feeling improved pt is currently resting in bed, NAD; remained cooperative PT IS MEDICALLY CLEARED FOR PSYCH EVAL/Stabilization 05/30/17 11:45 PES worker evaluated patient. She states she discussed case with Psychiatrist Dr. Ronquillo who is aware and agrees with the admission/mgt plan. Accepts patient into his service. pt voluntary agrees with admission pt is made aware of his medical results pt agrees with admission Re-evaluation Time: 09:35 Reassessment Condition: Improved - Lab Interpretations Lab Results: 05/30/17 08:15 05/30/17 08:15 Lab Results 05/30/17 08:20: Urine Opiates Screen Positive H, Urine Methadone Screen Negative , Ur Barbiturates Screen Negative, Ur Phencyclidine Scrn Negative, Ur Amphetamines Screen Negative, U Benzodiazepines Scrn Negative, U Oth Cocaine Metabols Negative, U Cannabinoids Screen Negative 05/30/17 08:20: Urine Color Yellow, Urine Appearance Clear, Urine pH 7.0, Ur Specific [place] 1.010, Urine Protein Negative, Urine Glucose (UA) Negative, Urine Ketones Negative, Urine Blood Negative, Urine Nitrate Negative, Urine Bilirubin Negative, Urine Urobilinogen 0.2, Ur Leukocyte Esterase Negative 05/30/17 08:15: Valproic Acid < 10 L 05/30/17 08:15: TSH 3rd Generation 1.54, Alcohol, Quantitative < 10 05/30/17 08:15: Salicylates < 1 L, Acetaminophen < 10.0 L 05/30/17 08:15: Sodium 139, Potassium 3.4 L, Chloride 102, Carbon Dioxide 25, Anion Gap 15, BUN 9, Creatinine 0.8, Est GFR ( Amer) > 60, Est GFR (Non- Af Amer) > 60, Random Glucose 107, Calcium 10.3, Total Bilirubin 0.5, AST 59 D , ALT 74 H, Alkaline Phosphatase 64, Total Protein 8.1, Albumin 4.7, Globulin 3.4, Albumin/Globulin Ratio 1.4 05/30/17 08:15: WBC 10.0 D, RBC 4.79, Hgb 15.7, Hct 43.7, MCV 91.2, MCH 32.8, MCHC 35.9, RDW 12.9, Plt Count 258, MPV 10.2, Gran % 70.0 H, Lymph % (Auto) 22.3 , [place] % (Auto) 7.0 H, Eos % (Auto) 0.5 L, Baso % (Auto) 0.2, Gran # 7.02 H, Lymph # (Auto) 2.2, [place] # (Auto) 0.7 H, Eos # (Auto) 0.1, Baso # (Auto) 0.02 I have reviewed the lab results: Yes Interpretation: Abnormal lab values (abnl utox) - RAD Interpretation Narrative RAD Interpretations (Text): EXAM: Chest X-ray Dictator : Norma Sandhu MD Report Date : 05/30/2017 10:47:36 IMPRESSION: No active disease. Radiology Orders: 05/30/17 07:37 CHEST PORTABLE [RAD] Stat Hogshead Cooper: Radiologist - EKG Interpretation EKG Interpretation (Text): 05/30/17 08:03 NSR at 90 bpm, normal axis, no ectopy, inverted T in leads III, no ST changes, NORMAL EKG; unchanged compare with old ekg 11/2016 Interpreted by ED Physician: Yes Type: 12 lead EKG Comparison: Similar to previous EKG - Medication Orders Current Medication Orders: Discontinued Medications Albuterol/Ipratropium (Duoneb 3 Mg/0.5 Mg (3 Ml) Ud) 3 ml IH STAT STA Stop: 05/30/17 07:39 Last Admin: 05/30/17 08:03 Dose: 3 ml Hydralazine HCl (Apresoline) 10 mg PO ONCE ONE Stop: 05/30/17 08:04 Last Admin: 05/30/17 09:11 Dose: Not Given Non-Admin Reason: Patient Refused Ziprasidone (Geodon Inj) 10 mg IM STAT STA PRN Reason: Protocol Stop: 05/30/17 07:52 Last Admin: 05/30/17 08:03 Dose: 10 mg IM Administration Charges Document 05/30/17 08:03 EWO (Rec: 05/30/17 08:03 EWO [id number]) Injection Site MAR Injection Site Left Deltoid Charges for Administration # of IM Administrations 1 Disposition/Present on Arrival - Present on Arrival Any Indicators Present on Arrival: No History of DVT/PE: No History of Uncontrolled Diabetes: No Urinary Catheter: No History of Decub. Ulcer: No History Surgical Site Infection Following: None - Disposition Have Diagnosis and Disposition been Completed?: Yes Diagnosis: Paranoid schizophrenia, Nonadherence to medication, Hallucination Disposition: HOSPITALIZED Disposition Time: 12:00 Patient Plan: Admission Condition: STABLE Referrals: Adina Yeung MD [Primary Care Provider] - Follow up with primary Forms: [employer] ([place])
[2017-05-30 08:35] LABS: BASO # 0.02 K/mm3 (0.0-2.0); BASO % 0.2 % (0.0-3.0); EOS # 0.1 (0.0-0.7); EOS % 0.5 % (1.5-5.0); GRAN # 7.02 (1.4-6.5); HEMOGLOBIN 15.7 g/dL (14.0-18.0); LYMPH # 2.2 (1.2-3.4); LYMPH % 22.3 % (22.0-35.0); MEAN CELL VOLUME 91.2 fl (80.0-105.0); MEAN CORPUSCULAR HEMOGLOBIN 32.8 pg (25.0-35.0); MEAN CORPUSCULAR HGB CONC 35.9 g/dl (31.0-37.0); MEAN PLATELET VOLUME 10.2 fl (7.0-11.0); MONO # 0.7 (0.1-0.6); RBC 4.79 10^6/uL (3.5-6.1); RED CELL DISTRIBUTION WIDTH 12.9 % (11.5-14.5)
[2017-05-30 08:49] LABS: ALB/GLOB RATIO 1.4 (1.1-1.8); ALBUMIN 4.7 g/dL (3.0-4.8); ALT/SGPT 74 U/L (7-56); AST/SGOT 59 U/L (17-59); BLOOD UREA NITROGEN 9 mg/dL (7-21); CALCIUM 10.3 mg/dL (8.4-10.5); GFR AFRICAN-AMERICAN > 60; GFR NON-AFRICAN AMERICAN > 60
[2017-05-30 08:52] LABS: URINE BILIRUBIN NEGATIVE (NEGATIVE); URINE BLOOD NEGATIVE (NEGATIVE); URINE COLOR YELLOW (YELLOW); URINE GLUCOSE (UA) NEGATIVE (NEGATIVE); URINE LEUKOCYTE ESTERASE NEGATIVE Leu/uL (NEGATIVE); URINE PROTEIN NEGATIVE mg/dL (<30 mg/dL); URINE UROBILINOGEN 0.2 E.U./dL (<1 E.U./dL)
[2017-05-30 08:53] LABS: URINE APPEARANCE CLEAR (CLEAR)
[2017-05-30 09:23] LABS: BARBITURATES, UR NEGATIVE (NEGATIVE); BENZODIAZEPINES, UR NEGATIVE (NEGATIVE); OPIATES, UR POSITIVE (NEGATIVE); PHENCYCLIDINE, UR NEGATIVE (NEGATIVE)
[2017-05-30 09:48] LABS: ACETAMINOPHEN < 10.0 ug/ml (10.0-20.0); SALICYLATE < 1 mg/dL (2.0-20.0)
--- NOTE | 2017-05-30 10:48 | RAD ---
HISTORY: medical clearance COMPARISON: Comparison is made with 12/07/2016 FINDINGS: LUNGS: No evidence of new infiltrate or consolidation in the lungs. PLEURA: No significant pleural effusion identified, no pneumothorax apparent. CARDIOVASCULAR: Normal. OSSEOUS STRUCTURES: No significant abnormalities. VISUALIZED UPPER ABDOMEN: Normal. OTHER FINDINGS: None. IMPRESSION: No active disease.
[2017-05-30 11:51] VITALS: O2SAT 97
[2017-05-30 14:31] VITALS: RESP 20
[2017-05-30] MEDS ORDERED: Alum-Mag Hydrox-Simethicone Susp (30 mL) PO PRN (16:16)
[2017-05-30] MEDS ORDERED: Magnesium Hydroxide Susp 30 ml UD PO PRN (16:16)
[2017-05-30 16:55] VITALS: PULSE 75
--- NOTE | 2017-05-30 17:10 | PCM.BM ---
<MerylEdita - Last Filed: 05/30/17 17:07> Treatment Plan Problems - Problems identified on initial assessmt auditory hallucination Date Initiated: 05/30/17 Time Initiated: 17:00 Assessment reference: NA Status: Active medication nonadherence Date Initiated: 05/30/17 Time Initiated: 17:00 Assessment reference: NA Status: Active ineffective coping Date Initiated: 05/30/17 Time Initiated: 17:00 Assessment reference: NA self care deficit Date Initiated: 05/30/17 Time Initiated: 17:00 Assessment reference: NA Status: Active Treatment assets and liabiliti Patient Assests: adapts well, cooperative, ADL independent, negotiates basic needs Patient Liabilities: live alone, auditory impairment - Milieu Protocol Maintain good personal hygiene: every shift Encourage regular showers, every shift Remind patient to perform daily oral care, every shift Assist patient to perform ADL's Conduct patient checks and document Observation sheet: Q15 minutes Maintain personal safety: every shift Educate patient to report safety concerns to staff, every shift Monitor environment for contraband/sharps Medication safety: Monitor for expected outcome, potential side effects: every shift, Assess barriers to learning: every shift, Assess readiness for medication education: every shift Family Contact - Goals for Treatment Patient goals for treatment: patient states he wants to go home and back to work. Discharge/Continuing Care - Education Needs Education Needs: Patient Medication, Patient Diagnosis/Disease Process, Patient Coping Skills, Patient Community resources, Patient Personal Hygiene/Grooming, Patient Aftercare Safety Plan - Discharge Discharge Criteria: Tolerates medication w/o severe side effects, Free of Suicidal thoughts, Free of paranoid thoughts, Free of agitation, Normal sleep pattern, Ability to care for self <Estefania Ronquillo - Last Filed: 05/31/17 11:42> - Diagnosis (1) Nonadherence to medication Status: Acute Interventions: Consider Risperdal Consta however it is unclear how effective this intervention was in the past 05/31/17 11:41 (2) Schizophrenia, paranoid type Status: Acute Interventions: Risperdal 2 mg AMHS for disorganization and hallucinations Cogentin 1 mg [facility] for EPS prophylaxis Ativan 1 mg [facility] to further help with mood control Depakote 500 mg [facility] for mood and impulse control Trazodone 50 mg HS, off-label for insomnia 05/31/17 11:42
[2017-05-30] MEDS: Divalproex 250 mg DR (BID formulation) PO SCH (21:11)
[2017-05-31 07:19] VITALS: BP 106/68; TEMP 98
[2017-05-31 07:56] LABS: BASO # 0.02 K/mm3 (0.0-2.0); BASO % 0.3 % (0.0-3.0); EOS # 0.1 (0.0-0.7); EOS % 0.9 % (1.5-5.0); GRAN # 3.52 (1.4-6.5); GRAN % 50.5 % (50.0-68.0); HEMOGLOBIN 14.8 g/dL (14.0-18.0); LYMPH # 2.7 (1.2-3.4); LYMPH % 38.4 % (22.0-35.0); MEAN CELL VOLUME 92.6 fl (80.0-105.0); MEAN CORPUSCULAR HEMOGLOBIN 32.1 pg (25.0-35.0); MEAN CORPUSCULAR HGB CONC 34.7 g/dl (31.0-37.0); MEAN PLATELET VOLUME 9.7 fl (7.0-11.0); MONO # 0.7 (0.1-0.6); MONO % 9.9 % (1.0-6.0); RBC 4.61 10^6/uL (3.5-6.1); RED CELL DISTRIBUTION WIDTH 13.4 % (11.5-14.5)
[2017-05-31 08:05] LABS: ALB/GLOB RATIO 1.3 (1.1-1.8); ALT/SGPT 57 U/L (7-56); AST/SGOT 37 U/L (17-59); BLOOD UREA NITROGEN 12 mg/dL (7-21); CALCIUM 9.9 mg/dL (8.4-10.5); GFR AFRICAN-AMERICAN > 60; GFR NON-AFRICAN AMERICAN > 60
[2017-05-31] MEDS: Divalproex 250 mg DR (BID formulation) PO SCH ×2 (09:26→21:14)
--- NOTE | 2017-05-31 10:23 | CARD ---
APPROVED REPORT EKG Measurement Heart [id number] <Conclusion> Normal sinus rhythm Normal ECG
--- NOTE | 2017-05-31 11:41 | PCM.PSYCH ---
Initial Psychiatric Evaluation - Initial Psychiatric Evaluation Type of Admission: Voluntary Legal Status: Capacity History of Present Illness and Precipitating Events: Patient is 34 yo single male with history of Paranoid Schizophrenia, multiple psychiatric hospitalizations, chronic noncompliance with psychiatric treatment and medications, who presented to the emergency department on 05/30/17 with complaints of shortness of breath. Further questioning revealed that patient was disorganized, paranoid and delusional. ER notes indicate that patient arrived to the ER with his girlfriend of 10 years , Rosalinda. Rosalinda was interviewed for collateral information and reported that patient's anxiety, hallucinations and paranoia have been worsening in the last few weeks. He has been delusional and hasn't slept in at least 3 days because he was scared about drones monitoring him from outside the home. Patient reported hearing voices coming from downstairs talking about his girlfriend and threatening him. He also believed that he was hearing a neighbor's young boy's voice and girlfriend feared that patient has the potential to start a fight with him. In the ER patient reported that the voices were threatening him and he "couldn't take it anymore". Patient is a little irritable this morning but superficially cooperative. Reports that he is feeling better and slept well last night. He denies any side effects from his medications and reports that auditory hallucinations have remitted at least for now. His mood is calmer. He looks almost relieved about the alleviation of his symptoms. He doesn't argue with me about his diagnosis, symptoms or need for medications this morning. He denies SI or thoughts to harm others. He still seems paranoid but denies feeling anyone wants to harm him or that there is special monitoring on the unit (beyond the cameras located in the halls and rooms). Patient has been visible on the unit and generally keeps to himself though he was able to tolerate a group yesterday. He seems anxious with poor insight. Impulse control is tenuous and behavior is still considered unpredictable. PAST PSYCHIATRIC HISTORY ~Most recent admission to the psychiatric unit was in 05/2016. Given diagnosis of Schizophrenia Paranoid type continuous, Opiate use disorder moderate. He was discharged on: cogentin 1 mg PO BID, Depakote 500 mg PO BID, trazodone 50 mg PO HS, risperdal 2 mg PO BID ~Patient reports that he was seeing Dr. Rahman at [facility], most recent follow up was 2-3 weeks ago though patient reports that he stopped taking his medications 5-7 months ago. Patient cannot remember prescribed medications and their doses. ~Two admissions in the past to the [facility] [place] [place] at age of 15 (substance induced psychosis, pt was using drugs back then), -[05/11-05/24/15] Pt was discharged with dx of substance/medication induced psychosis (pt was prescribed pain meds and within one month pt became delusional , psychotic, disorganized). Discharged on Seroquel 100 HS. Review of records indicate that patient has a history of coming to the psychiatric unit looking for help but being paranoid, irritable and resistant to needed medication changes. SOCIAL HISTORY Born and raised in [place]. Never . No kids. In relationship with his girlfriend of 10 years. Reports that he resides by himself. Denies any recent drug or alcohol use. Denies substance abuse issues and denies recent drug or alcohol use. Of note: patient was discharged from [facility] [05/11-05/24/15] with dx of substance/medication induced psychosis. Patient was prescribed pain meds and within one month pt became delusional, psychotic, disorganized. Patient denied any legal or court issues to nursing on 05/30/17. He reported being in prison several years ago for drug possession. Current Medications: Active Medications Generic Name Dose Route Start Last Admin Trade Name Freq PRN Reason Stop Dose Admin Acetaminophen 650 mg 05/30/17 16:16 Tylenol 325mg Tab PO Q4 PRN Pain, moderate (4-7) Al Hydrox/Mg Hydrox/Simethicone 30 ml 05/30/17 16:16 Maalox Plus 30 Ml PO DAILY PRN Upset Stomach Benztropine Mesylate 1 mg 05/30/17 22:00 05/30/17 21:11 Cogentin PO 1 mg [facility] CAT Administration Divalproex Sodium 500 mg 05/30/17 22:00 05/30/17 21:11 Peña Aquino (*Bid*) PO 500 mg [facility] CAT Administration Protocol Lorazepam 1 mg 05/30/17 22:00 05/30/17 21:11 Ativan PO 1 mg [facility] CAT Administration Protocol Magnesium Hydroxide 30 ml 05/30/17 16:16 Milk Of Magnesia PO DAILY PRN Constipation Risperidone 2 mg 05/30/17 22:00 05/30/17 21:11 Risperdal Tab PO 2 mg [facility] CAT Administration Protocol Trazodone HCl 50 mg 05/30/17 22:00 05/30/17 21:11 Desyrel PO 50 mg HS CAT Administration Past Psychiatric History - Past Psychiatric History Pertinent Medical Hx (Current Medical&Sleep Prob, Allergies): Allergies Allergy/AdvReac Type Severity Reaction Status Date / Time No Known Allergies Allergy Verified 05/30/17 07:31 risperiDONE [RisperDAL Tab] 1 mg PO HS #14 tab 05/14/16 LORazepam [Ativan] 1 mg PO DAILY 05/19/16 Benztropine [Cogentin] 1 mg PO BID #60 tab 05/26/16 Divalproex [Depakote DR(*BID*)] 500 mg PO BID #60 ect 05/26/16 risperiDONE [RisperDAL Tab] 2 mg PO BID #60 tab 05/26/16 traZODone [Desyrel] 50 mg PO HS PRN #30 tab 05/26/16 Mental Status Examination - Personal Presentation Personal Presentation: Looks stated age - Affect Affect: Constricted - Motor Activity Motor Activity: Calm (tenuously calm thus far) - Reliability in Providing Information Reliability in Providing Information: Fair - Speech Speech: Disorganized, Tangential - Mood Mood: Anxious - Formal Thought Process Formal Thought Process: Hallucinations (currently denies), Delusions, Paranoia, Loosening of associations - Obsessions/Compulsions Obsessions: No Compulsions: No - Cognitive Functions Orientation: Person, Place, Situation Sensorium: Alert Attention/Concentration: Attentive Estimate of Intelligence: Average Judgement: Imparied, as evidence by: Lack of insight into illness Memory: Recent impaired, as evidence by: Inability to recall events of the day - Risk Risk: Homicidal, Diminished functioning DSM 5 DX - DSM 5 DSM 5 Diagnosis: Paranoid Schizophrenia - Recommended/Plan of Treatment Treatment Recommendations and Plan of Treatment: * group, milieu and supportive tx * Risperdal 2 mg AMHS for disorganization and hallucinations * Cogentin 1 mg [facility] for EPS prophylaxis * Ativan 1 mg AMHS to further help with mood control * Depakote 500 mg [facility] for mood and impulse control 05/30/17 05/30/17 08:15 17:20 Valproic Acid < 10 L < 10 L * Trazodone 50 mg HS, off-label for insomnia * Vitals reviewed and noted below: 05/31/17 07:19 Temperature 98 F Pulse Rate 75 Respiratory 20 Rate Blood Pressure 106/68 * Medical consult prn ER LABS AND STUDIES 05/30/17 08:20: Urine Opiates Screen Positive H, Urine Methadone Screen Negative , Ur Barbiturates Screen Negative, Ur Phencyclidine Scrn Negative, Ur Amphetamines Screen Negative, U Benzodiazepines Scrn Negative, U Oth Cocaine Metabols Negative, U Cannabinoids Screen Negative 05/30/17 08:20: Urine Color Yellow, Urine Appearance Clear, Urine pH 7.0, Ur Specific [place] 1.010, Urine Protein Negative, Urine Glucose (UA) Negative, Urine Ketones Negative, Urine Blood Negative, Urine Nitrate Negative, Urine Bilirubin Negative, Urine Urobilinogen 0.2, Ur Leukocyte Esterase Negative 05/30/17 08:15: Valproic Acid < 10 L 05/30/17 08:15: TSH 3rd Generation 1.54, Alcohol, Quantitative < 10 05/30/17 08:15: Salicylates < 1 L, Acetaminophen < 10.0 L 05/30/17 08:15: Sodium 139, Potassium 3.4 L, Chloride 102, Carbon Dioxide 25, Anion Gap 15, BUN 9, Creatinine 0.8, Est GFR ( Amer) > 60, Est GFR (Non- Af Amer) > 60, Random Glucose 107, Calcium 10.3, Total Bilirubin 0.5, AST 59 D , ALT 74 H, Alkaline Phosphatase 64, Total Protein 8.1, Albumin 4.7, Globulin 3.4, Albumin/Globulin Ratio 1.4 05/30/17 08:15: WBC 10.0 D, RBC 4.79, Hgb 15.7, Hct 43.7, MCV 91.2, MCH 32.8, MCHC 35.9, RDW 12.9, Plt Count 258, MPV 10.2, Gran % 70.0 H, Lymph % (Auto) 22.3 , [place] % (Auto) 7.0 H, Eos % (Auto) 0.5 L, Baso % (Auto) 0.2, Gran # 7.02 H, Lymph # (Auto) 2.2, [place] # (Auto) 0.7 H, Eos # (Auto) 0.1, Baso # (Auto) 0.02 - RAD Interpretation EXAM: Chest X-ray Dictator : Norma Sandhu MD Report Date : 05/30/2017 10:47:36 IMPRESSION: No active disease. - EKG Interpretation 05/30/17 08:03 NSR at 90 bpm, normal axis, no ectopy, inverted T in leads III, no ST changes, NORMAL EKG; unchanged compare with old ekg 11/2016 FLOOR LABS 05/31/17 05/31/17 05/31/17 07:30 07:30 07:30 WBC 7.0 D RBC 4.61 Hgb 14.8 Hct 42.7 MCV 92.6 MCH 32.1 MCHC 34.7 RDW 13.4 Plt Count 232 MPV 9.7 Gran % 50.5 Lymph % (Auto) 38.4 H [place] % (Auto) 9.9 H Eos % (Auto) 0.9 L Baso % (Auto) 0.3 Gran # 3.52 Lymph # (Auto) 2.7 [place] # (Auto) 0.7 H Eos # (Auto) 0.1 Baso # (Auto) 0.02 Sodium 143 Potassium 4.0 Chloride 107 Carbon Dioxide 25 Anion Gap 15 BUN 12 Creatinine 0.9 Est GFR ( Amer) > 60 Random Glucose 97 Calcium 9.9 Total Bilirubin 0.5 AST 37 ALT 57 H Alkaline Phosphatase 54 Total Protein 7.2 Albumin 4.0 Globulin 3.2 Albumin/Globulin Ratio 1.3 TSH 3rd Generation 0.40 L
[2017-05-31] MEDS ORDERED: Benzocaine/Menthol (Cepacol) Lozenge MT PRN (16:51)
--- NOTE | 2017-05-31 16:55 | CP.PCM.CON ---
<Sloan Baires - Last Filed: 05/31/17 19:09> History of Present Illness - History of Present Illness History of Present Illness: Sloan Baires DO PGY1 - IM Consult Note for Dr. Johnson Consultation for sore throat HPI: 35yo M with PMHx of Schizophrenia, Anxiety, Asthma, GERD and Back pain who initially presented to the ED because he is hearing voices. Internal medicine consult called for sore throat. Patient reports that he woke up this morning with a sensation of something stuck in the back of his throat, which he could not clear or expectorate. He has also had some soreness with swallowing solids, but no difficulty with solids or liquids. He also reports a cough, productive of yellowish sputum for the past few days. He denies fever, chills, nausea, vomiting, diarrhea, constipation, chest pain, shortness of breath, hemoptysis, hematemesis. 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 He reports that his diet consists mostly of fatty foods, and that he eats a lot of spicy food. He denies any other problems. States that he has not had any asthma exacerbations since he was a child. He denies any chest pain, no SOB. No recent illness. No N/V/D. No F/C. Ambulates well. Tolerates diet well. PMD: Jens PMHx:Schizophrenia, Anxiety, Asthma, GERD, ETOH Abuse, Chronic Back pain PSHx: Left kidney surgery Family Hx: Denies Social Hx: 1 ppd [id number]; Admits to weekly 6 pack beer + 1/2 pint liquor. Denies illicit drug use. All: NKDA Meds: Percocet. Denies any other home meds Past Patient History - Infectious Disease Hx of Infectious Diseases: None - Tetanus Immunizations Tetanus Immunization: Unknown - Past Social History Smoking Status: Heavy Smoker > 10 Cigarettes Daily - CARDIAC Hx Cardiac Disorders: No Hx Hypertension: No - PULMONARY Hx Respiratory Disorders: No Hx Tuberculosis: No - NEUROLOGICAL Hx Neurological Disorder: No HX Cerebrovascular Accident: No Hx Seizures: No - HEENT Hx HEENT Problems: No - RENAL Hx Chronic Kidney Disease: Yes Other/Comment: hx of kidney infection with sx. - ENDOCRINE/METABOLIC Hx Endocrine Disorders: No - HEMATOLOGICAL/ONCOLOGICAL Hx Cancer: No - INTEGUMENTARY Hx Dermatological Problems: No - MUSCULOSKELETAL/RHEUMATOLOGICAL Hx Musculoskeletal Disorders: No - GASTROINTESTINAL Hx Gastrointestinal Disorders: No - GENITOURINARY/GYNECOLOGICAL Hx Sexually Transmitted Disorders: No - PSYCHIATRIC Hx Anxiety: Yes Hx Emotional Abuse: No Hx Physical Abuse: No Hx Schizophrenia: Yes Hx Sexual Abuse: No Hx Substance Use: Yes - SURGICAL HISTORY Hx Surgeries: No Other/Comment: LEFT KIDNEY SX - ANESTHESIA Hx Anesthesia: Yes Hx Anesthesia Reactions: No Meds Allergies/Adverse Reactions: Allergies Allergy/AdvReac Type Severity Reaction Status Date / Time No Known Allergies Allergy Verified 05/30/17 07:31 - Medications Medications: Current Medications Acetaminophen (Tylenol 325mg Tab) 650 mg PO Q4 PRN PRN Reason: Pain, moderate (4-7) Al Hydrox/Mg Hydrox/Simethicone (Maalox Plus 30 Ml) 30 ml PO DAILY PRN PRN Reason: Upset Stomach Benzocaine/Menthol (Cepacol Sore Throat) 1 santos MT Q2H PRN PRN Reason: Sore Throat Benztropine Mesylate (Cogentin) 1 mg PO [facility] Last Admin: 05/31/17 09:26 Dose: 1 mg Divalproex Sodium (Depakote Dr (*Bid*)) 500 mg PO [facility] PRN Reason: Protocol Last Admin: 05/31/17 09:26 Dose: 500 mg Lorazepam (Ativan) 1 mg PO [facility] PRN Reason: Protocol Last Admin: 05/31/17 09:26 Dose: 1 mg Magnesium Hydroxide (Milk Of Magnesia) 30 ml PO DAILY PRN PRN Reason: Constipation Pantoprazole Sodium (Protonix Ec Tab) 40 mg PO 0600 [facility] Risperidone (Risperdal Tab) 2 mg PO [facility] PRN Reason: Protocol Last Admin: 05/31/17 09:26 Dose: 2 mg Trazodone HCl (Desyrel) 50 mg PO [facility] Last Admin: 05/30/17 21:11 Dose: 50 mg Physical Exam - Constitutional Appears: Non-toxic, No Acute Distress - Head Exam Head Exam: ATRAUMATIC, NORMOCEPHALIC - Eye Exam Eye Exam: EOMI, Normal appearance, PERRL - ENT Exam ENT Exam: Mucous Membranes Moist - Expanded ENT Exam Expanded Mouth exam: moist, normal external inspection Teeth exam: dental caries Throat exam: Post Pharyngeal Erythema (mild). absent: Post Pharyngeal Edema, Tonsillar Erythema, Tonsillar Exudate, Tonsillomegaly - Neck Exam Neck exam: Positive for: Normal Inspection - Respiratory Exam Respiratory Exam: Clear to Auscultation Bilateral, NORMAL BREATHING PATTERN - Cardiovascular Exam Cardiovascular Exam: RRR, +S1, +S2 - GI/Abdominal Exam GI & Abdominal Exam: Normal Bowel Sounds, Soft, Tenderness (epigastric) - Extremities Exam Extremities exam: Positive for: normal inspection. Negative for: calf tenderness, pedal edema - Neurological Exam Neurological exam: Alert, CN II-XII Intact, Oriented x3 - Psychiatric Exam Psychiatric exam: Normal Affect, Normal Mood - Skin Skin Exam: Dry, Intact, Normal Color Results - Vital Signs Recent Vital Signs: Last Vital Signs Temp 98 F 05/31/17 07:19 Pulse 75 05/31/17 07:19 Resp 20 05/31/17 07:19 BP 106/68 05/31/17 07:19 Pulse Ox 97 05/30/17 10:00 - Labs Result Diagrams: 05/31/17 07:30 05/31/17 07:30 Labs: Laboratory Results - last 24 hr 05/30/17 05/31/17 05/31/17 17:20 07:30 07:30 WBC 7.0 D RBC 4.61 Hgb 14.8 Hct 42.7 MCV 92.6 MCH 32.1 MCHC 34.7 RDW 13.4 Plt Count 232 MPV 9.7 Gran % 50.5 Lymph % (Auto) 38.4 H [place] % (Auto) 9.9 H Eos % (Auto) 0.9 L Baso % (Auto) 0.3 Gran # 3.52 Lymph # (Auto) 2.7 [place] # (Auto) 0.7 H Eos # (Auto) 0.1 Baso # (Auto) 0.02 Sodium 143 Potassium 4.0 Chloride 107 Carbon Dioxide 25 Anion Gap 15 BUN 12 Creatinine 0.9 Est GFR ( Amer) > 60 Est GFR (Non-Af Amer) > 60 Random Glucose 97 Calcium 9.9 Total Bilirubin 0.5 AST 37 ALT 57 H Alkaline Phosphatase 54 Total Protein 7.2 Albumin 4.0 Globulin 3.2 Albumin/Globulin Ratio 1.3 TSH 3rd Generation Valproic Acid < 10 L 05/31/17 07:30 WBC RBC Hgb Hct MCV MCH MCHC RDW Plt Count MPV Gran % Lymph % (Auto) [place] % (Auto) Eos % (Auto) Baso % (Auto) Gran # Lymph # (Auto) [place] # (Auto) Eos # (Auto) Baso # (Auto) Sodium Potassium Chloride Carbon Dioxide Anion Gap BUN Creatinine Est GFR ( Amer) Est GFR (Non-Af Amer) Random Glucose Calcium Total Bilirubin AST ALT Alkaline Phosphatase Total Protein Albumin Globulin Albumin/Globulin Ratio TSH 3rd Generation 0.40 L Valproic Acid Assessment & Plan - Assessment and Plan (Free Text) Assessment: 35yo M with PMHx of Schizophrenia, Anxiety, Asthma, GERD and Back pain who initially presented to the ED because he is hearing voices. Internal medicine consult called for sore throat and globus sensation 1. Globus - Likely 2/2 uncontrolled GERD vs viral URI vs medication adverse effect; less likely 2/2 malignancy - Start PPI 40mg daily; continue maalox; start cepacol - Encourage PO hydration - Discussed with patient importance of abstinence from alcohol and tobacco; NSAID avoidance; dietary modifications - Patient will require outpatient GI evaluation for possible EGD considering history of uncontrolled GERD - Monitor for symptom resolution 2. Auditory hallucinations - Continue management as per psych Patient seen and plan discussed with attending, Dr. Johnson <Fabrizio Johnson - Last Filed: 06/01/17 00:18> Meds - Medications Medications: Current Medications Acetaminophen (Tylenol 325mg Tab) 650 mg PO Q4 PRN PRN Reason: Pain, moderate (4-7) Al Hydrox/Mg Hydrox/Simethicone (Maalox Plus 30 Ml) 30 ml PO DAILY PRN PRN Reason: Upset Stomach Benzocaine/Menthol (Cepacol Sore Throat) 1 santos MT Q2H PRN PRN Reason: Sore Throat Last Admin: 05/31/17 17:55 Dose: 1 santos Benztropine Mesylate (Cogentin) 1 mg PO [facility] Last Admin: 05/31/17 21:13 Dose: 1 mg Divalproex Sodium (Depakote Dr (*Bid*)) 500 mg PO [facility] CAT PRN Reason: Protocol Last Admin: 05/31/17 21:14 Dose: 500 mg Lorazepam (Ativan) 1 mg PO [facility] CAT PRN Reason: Protocol Last Admin: 05/31/17 21:15 Dose: 1 mg Magnesium Hydroxide (Milk Of Magnesia) 30 ml PO DAILY PRN PRN Reason: Constipation Pantoprazole Sodium (Protonix Ec Tab) 40 mg PO 0600 [facility] Risperidone (Risperdal Tab) 2 mg PO [facility] CAT PRN Reason: Protocol Last Admin: 05/31/17 21:14 Dose: 2 mg Trazodone HCl (Desyrel) 50 mg PO HS [facility] Last Admin: 05/31/17 21:13 Dose: 50 mg Results - Vital Signs Recent Vital Signs: Last Vital Signs Temp 98 F 05/31/17 07:19 Pulse 75 05/31/17 07:19 Resp 20 05/31/17 07:19 BP 106/68 05/31/17 07:19 Pulse Ox 97 05/30/17 10:00 - Labs Result Diagrams: 05/31/17 07:30 05/31/17 07:30 Labs: Laboratory Results - last 24 hr 05/31/17 05/31/17 05/31/17 07:30 07:30 07:30 WBC 7.0 D RBC 4.61 Hgb 14.8 Hct 42.7 MCV 92.6 MCH 32.1 MCHC 34.7 RDW 13.4 Plt Count 232 MPV 9.7 Gran % 50.5 Lymph % (Auto) 38.4 H [place] % (Auto) 9.9 H Eos % (Auto) 0.9 L Baso % (Auto) 0.3 Gran # 3.52 Lymph # (Auto) 2.7 [place] # (Auto) 0.7 H Eos # (Auto) 0.1 Baso # (Auto) 0.02 Sodium 143 Potassium 4.0 Chloride 107 Carbon Dioxide 25 Anion Gap 15 BUN 12 Creatinine 0.9 Est GFR ( Amer) > 60 Est GFR (Non-Af Amer) > 60 Random Glucose 97 Calcium 9.9 Total Bilirubin 0.5 AST 37 ALT 57 H Alkaline Phosphatase 54 Total Protein 7.2 Albumin 4.0 Globulin 3.2 Albumin/Globulin Ratio 1.3 TSH 3rd Generation 0.40 L RPR 05/31/17 07:30 WBC RBC Hgb Hct MCV MCH MCHC RDW Plt Count MPV Gran % Lymph % (Auto) [place] % (Auto) Eos % (Auto) Baso % (Auto) Gran # Lymph # (Auto) [place] # (Auto) Eos # (Auto) Baso # (Auto) Sodium Potassium Chloride Carbon Dioxide Anion Gap BUN Creatinine Est GFR ( Amer) Est GFR (Non-Af Amer) Random Glucose Calcium Total Bilirubin AST ALT Alkaline Phosphatase Total Protein Albumin Globulin Albumin/Globulin Ratio TSH 3rd Generation RPR Nonreactive Attending/Attestation - Attestation I have personally seen and examined this patient.: Yes I have fully participated in the care of the patient.: Yes I have reviewed all pertinent clinical information: Yes Notes (Text): 05/31/17 36 year old male with past medical history of schizophrenia, GERD, asthma and chronic back pain who presented with complaint of hearing voices. Medical consultation was requested for complaint of sore throat. He also reports globus sensation, heartburn and mild epigastric pain. Agree with PPI and cepacol. Avoids NSAIDs. Counselled on alcohol and smoking cessation. Fabrizio Johnson MD Hospitaist.
[2017-06-01] MEDS ORDERED: Pantoprazole 40 mg EC Tab PO SCH (06:00)
[2017-06-01] MEDS: Divalproex 250 mg DR (BID formulation) PO SCH (09:34)
--- NOTE | 2017-06-01 13:27 | PCM.PYCHDC ---
Mental Status Examination - Mental Status Examination Orientation: Person, Place, Situation, Time Memory: Intact Mood: Neutral Affect: Broad (and mood congruent) Speech: Appropriate Attention: WNL Concentration: WNL Association: WNL Fund of Knowledge: WNL Formal Thought Process: No Impairment Description of patient's judgement and insight: Pt has improved insight into mental and medical illness, pt was compliant with medications and unit rules and regulations, pt was going to groups, was calm, cooperative, socially appropriate, no behavioral incidents, no agitation, no aggression. Psychotic Thoughts and Behaviors: Pt denied v/a/t hallucinations, denied paranoid ideations, pt does not appear to be psychotic, and thought process is goal directed. Suicidal Ideation: No Current Homicidal Ideation?: No Plan: pt adamantly denied thoughts of harming self or others denied intent or plan. Discharge Summary - Discharge Note Reason for Hospitalization: patient was noncompliant with her medications, as a result was hearing voices, feeling paranoid. Psychiatric History (includes Medical, Family, Personal Hx): patient has history of mental illness most likely schizophrenia Laboratory Data: Abnormal Lab Results 05/31/17 07:30 RPR Nonreactive 05/31/17 07:30 05/31/17 07:30 Lab Results 05/31/17 07:30: RPR Nonreactive 05/31/17 07:30: TSH 3rd Generation 0.40 L 05/31/17 07:30: Sodium 143, Potassium 4.0, Chloride 107, Carbon Dioxide 25, Anion Gap 15, BUN 12, Creatinine 0.9, Est GFR ( Amer) > 60, Est GFR (Non- Af Amer) > 60, Random Glucose 97, Calcium 9.9, Total Bilirubin 0.5, AST 37, ALT 57 H, Alkaline Phosphatase 54, Total Protein 7.2, Albumin 4.0, Globulin 3.2, Albumin/Globulin Ratio 1.3 05/31/17 07:30: WBC 7.0 D, RBC 4.61, Hgb 14.8, Hct 42.7, MCV 92.6, MCH 32.1, MCHC 34.7, RDW 13.4, Plt Count 232, MPV 9.7, Gran % 50.5, Lymph % (Auto) 38.4 H , [place] % (Auto) 9.9 H, Eos % (Auto) 0.9 L, Baso % (Auto) 0.3, Gran # 3.52, Lymph # (Auto) 2.7, [place] # (Auto) 0.7 H, Eos # (Auto) 0.1, Baso # (Auto) 0.02 05/30/17 17:20: Valproic Acid < 10 L 05/30/17 08:20: Urine Opiates Screen Positive H, Urine Methadone Screen Negative , Ur Barbiturates Screen Negative, Ur Phencyclidine Scrn Negative, Ur Amphetamines Screen Negative, U Benzodiazepines Scrn Negative, U Oth Cocaine Metabols Negative, U Cannabinoids Screen Negative 05/30/17 08:20: Urine Color Yellow, Urine Appearance Clear, Urine pH 7.0, Ur Specific [place] 1.010, Urine Protein Negative, Urine Glucose (UA) Negative, Urine Ketones Negative, Urine Blood Negative, Urine Nitrate Negative, Urine Bilirubin Negative, Urine Urobilinogen 0.2, Ur Leukocyte Esterase Negative 05/30/17 08:15: Valproic Acid < 10 L 05/30/17 08:15: TSH 3rd Generation 1.54, Alcohol, Quantitative < 10 05/30/17 08:15: Salicylates < 1 L, Acetaminophen < 10.0 L 05/30/17 08:15: Sodium 139, Potassium 3.4 L, Chloride 102, Carbon Dioxide 25, Anion Gap 15, BUN 9, Creatinine 0.8, Est GFR ( Amer) > 60, Est GFR (Non- Af Amer) > 60, Random Glucose 107, Calcium 10.3, Total Bilirubin 0.5, AST 59 D , ALT 74 H, Alkaline Phosphatase 64, Total Protein 8.1, Albumin 4.7, Globulin 3.4, Albumin/Globulin Ratio 1.4 05/30/17 08:15: WBC 10.0 D, RBC 4.79, Hgb 15.7, Hct 43.7, MCV 91.2, MCH 32.8, MCHC 35.9, RDW 12.9, Plt Count 258, MPV 10.2, Gran % 70.0 H, Lymph % (Auto) 22.3 , [place] % (Auto) 7.0 H, Eos % (Auto) 0.5 L, Baso % (Auto) 0.2, Gran # 7.02 H, Lymph # (Auto) 2.2, [place] # (Auto) 0.7 H, Eos # (Auto) 0.1, Baso # (Auto) 0.02 Vital Signs Temp Pulse Pulse Pulse Resp BP Pulse Ox 05/31/17 07:19 98 F 75 20 106/68 05/30/17 16:00 75 114/62 05/30/17 13:00 98.4 F 82 82 84 20 108/65 05/30/17 10:00 98.2 F 72 18 134/79 97 05/30/17 08:59 80 18 133/72 98 05/30/17 07:21 97.6 F 88 18 186/94 H 98 Consultations:: List each consultation separately and include: 1. Reason for request. 2. Findings. 3. Follow-up Consultations: patient was seen by medical team, please see notes for more detailed information. Summary of Hospital Course include:: 1. Description of specific treatment plan utilized for patients during their course of treatmen. 2. Summarize the time- course for resolution of acute symptoms and/or regressed behaviors. 3. Describe issues identified and worked on during hospitalization. 4. Describe medication utilized. 5. Describe medical problems identified and treated. 6. Reassessment of suicide risk Summary of Hospital Course: as per 's report: Patient is 34 yo single male with history of Paranoid Schizophrenia, multiple psychiatric hospitalizations, chronic noncompliance with psychiatric treatment and medications, who presented to the emergency department on 05/30/17 with complaints of shortness of breath. Further questioning revealed that patient was disorganized, paranoid and delusional in the ED. Patient was seen and examined, notes from the emergency room as well as Dr. Ronquillo notes reviewed, patient was seen and examined at the treatment team meeting, patient presented to have good personal hygiene, good ADLs, this conventional underwriter is very familiar with this patient from the multiple admissions to the psychiatric inpatient unit as well as from consultation services. Patient presented well, to compare with the previous admission patient is more organized, does not present any danger to self or others, patient reported that he was noncompliant with them injectable form of Risperdal, patient reported that he was feeling well initially, but for past 3 days he started to hear voices, patient is willing to take medications, patient is aware of his follow- up appointment at [facility] this coming June 05, his Risperdal Consta injection 37.5 mg every 2 weeks. Patient said from now on "I swear to God, now I know that I need to take my medications". during this hospitalization patient slept well, has good appetite and did not have any behavioral disturbances, patient submitted 48 hour notice, requesting to be discharged, patient said that he wants to go back to work and he cannot afford to miss a new workdays anymore. pt's UDS was positive for opioids, which could contribute to the pt's presentation. Considering the fact that patient initiated emergency room visit, pt also has h/ o looking for admission if pt does not feel well, gives this conventional underwriter impression that pt might be safe in the community. pt denied thoughts of harming self or others, denied intent or plan, pt denied hearing voices or seeing things, denied feeling paranoid. patient was attending groups, visible on the unit, no behavioral outbursts. patient does not meet the criteria for screening by [facility]. Patient tolerates medications well, no side effects observed or reported, aims 0 , no EPS. Overall pt improved but pt might benefit from the further psychiatric hospitalization, but pt refused to stay in the hospital, saying that he needs to return to work today. At the time of the discharge pt denied been depressed, denied thoughts of harming self or others, denied psychotic symptoms, and pt does not appeared to be psychotic, denied been anxious, pt is not in imminent danger to self or others, will be following up at [facility], information about follow up appointment, time and address provided to the pt, it is patient responsibility to follow up with outpatient clinic, PMD as well as specialists (see SW note for more detailed information). In case pt will need to obtain results of studies pending at discharge pt was provided with contact information of Psychiatric Inpatient unit [phone] as well as Medical Record Department [phone]. pt will be d/c AMA, no prescriptions given Pt was educated about safety plan in case of worsening of symptoms or in case of suicidal or homicidal ideation call 911 or go to the nearest ER, also was educated to take meds as prescribed and stay away from drugs, pt verbalized understanding. - Diagnosis (1) Schizophrenia, paranoid type Current Visit: Yes Status: Acute (2) Substance or medication-induced psychotic disorder Current Visit: No Status: Acute - Final Diagnosis (DSM 5) Condition upon Discharge: STABLE Disposition: AGAINST MEDICAL ADVICE - Smoking Cessation Smoking Cessation Medication prescribed: No - Antipsychotic Medications Pt discharged on 2 or more routine antipsychotic medications: No
== END 2017-06-01 14:17 | disposition left against medical advice (07) | DRG 430 ==
LOC: ED 07:20 → ERH 11:52 → PSYC 12:22
PROVIDERS: ADMIT Psychiatry & Neurology Psychiatry; ATTEND Psychiatry & Neurology Psychiatry
DX: F20.0 Paranoid schizophrenia (principal); F41.9 Anxiety disorder, unspecified; J45.909 Unspecified asthma, uncomplicated; K21.9 Gastro-esophageal reflux disease without esophagitis; G89.29 Other chronic pain; M54.9 Dorsalgia, unspecified; Z91.14 Patient's other noncompliance with medication regimen; Z87.891 Personal history of nicotine dependence

== ENCOUNTER 2017-08-10 14:59 | Emergency (ER) | payer MEDICAID, OTHER ==
[2017-08-10 15:03] VITALS: BMI 25.8
[2017-08-10 15:08] VITALS: O2SAT 99
[2017-08-10] MEDS ORDERED: Sodium Chloride 0.9% 1,000 ML IV STA (15:35)
--- NOTE | 2017-08-10 15:59 | ED PDOC ---
Arrival/HPI - General Historian: Patient - General Chief Complaint: Back Pain Time Seen by Provider: 08/10/17 15:04 - History of Present Illness Narrative History of Present Illness (Text): 08/10/17 15:55 36yr old male presents today with lower back pain. pt denies trauma or injury. pt states he has hx of herniated discs in the back. pt states he also has history of pyelonephritis. pt states pain is similar to when he need to be hospitalized for kidney issues. pt denies n/v/d/c. pt denies abdominal pain. pt denies urinary symptoms. pt denies fever/chills. no bladder or bowel incontinence. pt denies radiation of pain to the abdomen or legs. pt denies numbness, weakness or tingling in the extremities. pt states he has been taking tylenol #4 at home for pain. pt denies trauma or injury. no other complaints. ( Susan Duran) Past Medical History - Provider Review Nursing Documentation Reviewed: Yes - Travel History Have you recently traveled outside [place] w/in the past 3 mons?: No - Past History Past History: No Previous - Infectious Disease Hx of Infectious Diseases: None - Tetanus Immunization Tetanus Immunization: Unknown - Cardiac Hx Cardiac Disorders: No - Pulmonary Hx Respiratory Disorders: Yes Hx Asthma: Yes - Neurological Hx Neurological Disorder: No - HEENT Hx HEENT Disorder: No - Renal Hx Renal Disorder: Yes Other/Comment: hx of kidney infection with sx. - Endocrine/Metabolic Hx Endocrine Disorders: No - Hematological/Oncological Hx Blood Disorders: No - Integumentary Hx Dermatological Disorder: No - Musculoskeletal/Rheumatological Hx Musculoskeletal Disorders: No - Gastrointestinal Hx Gastrointestinal Disorders: No - Genitourinary/Gynecological Hx Genitourinary Disorders: No Hx Sexually Transmitted Diseases: No - Psychiatric Hx Psychophysiologic Disorder: Yes Hx Anxiety: Yes Hx Physical Abuse: No Hx Schizophrenia: Yes Hx Substance Use: No - Past Surgical History Past Surgical History: Non-Contributing - Surgical History Other/Comment: LEFT KIDNEY SX - Anesthesia Hx Anesthesia: Yes Hx Anesthesia Reactions: No - Suicidal Assessment Feels Threatened In Home Enviroment: No Family/Social History - Physician Review Nursing Documentation Reviewed: Yes Family/Social History: Unknown Family HX Smoking Status: Heavy Smoker > 10 Cigarettes Daily Hx Alcohol Use: No (history) Hx Substance Use: No Hx Substance Use Treatment: No Allergies/Home Meds Allergies/Adverse Reactions: Allergies No Known Allergies Allergy (Verified 08/12/17 23:05) Home Medications: Home Meds Medication Instructions Recorded Confirmed LORazepam [Ativan] 1 mg PO DAILY 05/19/16 08/12/17 Review of Systems - Review of Systems Constitutional: absent: Fatigue, Fevers Respiratory: absent: SOB, Cough Cardiovascular: absent: Chest Pain, Palpitations Gastrointestinal: absent: Abdominal Pain, Constipation, Diarrhea, Nausea, Vomiting Genitourinary Male: absent: Dysuria, Frequency, Hematuria, Urinary Output Changes Musculoskeletal: Back Pain. absent: Arthralgias, Neck Pain Skin: absent: Rash, Pruritis Neurological: absent: Headache, Dizziness Psychiatric: absent: Anxiety, Depression Physical Exam Vital Signs Reviewed: Yes Temperature: Afebrile Blood Pressure: Normal Pulse: Regular Respiratory Rate: Normal Appearance: Positive for: Well-Appearing, Non-Toxic, Comfortable Pain Distress: None Mental Status: Positive for: Alert and Oriented X 3 - Systems Exam Head: Present: Atraumatic Mouth: Present: Moist Mucous Membranes Neck: Present: Normal Range of Motion Respiratory/Chest: Present: Clear to Auscultation, Good Air Exchange. No: Respiratory Distress, Accessory Muscle Use Cardiovascular: Present: Regular Rate and Rhythm, Normal S1, S2. No: Murmurs Abdomen: No: Tenderness, Distention, Peritoneal Signs, Rebound, Guarding Back: Present: Normal Inspection, Midline Tenderness (+ lower lumbar tenderness) , Paraspinal Tenderness (+ bilateral lower lumbar paraspinal tenderness). No: CVA Tenderness Upper Extremity: Present: Normal Inspection, Normal ROM Lower Extremity: Present: Normal Inspection, Normal ROM Neurological: Present: GCS=15, Speech Normal Skin: Present: Warm, Dry, Normal Color. No: Rashes Psychiatric: Present: Alert, Oriented x 3 Vital Signs Temp Pulse Resp BP Pulse Ox 08/10/17 18:43 98.3 F 75 18 124/72 99 08/10/17 15:10 98.2 F 77 20 117/80 99 08/10/17 15:03 98.2 F 77 20 117/80 99 Medical Decision Making ED Course and Treatment: 08/10/17 16:01 Patient is nontoxic well appearing with stable vital signs presenting with low back pain CBC CMP Lipase Urinalysis: CAT scan: FINDINGS: LOWER THORAX: Minor passive/dependent type atelectasis both posterior lower lung zones. Heart mildly enlarged. . No significant pericardial effusion. There is a small hiatal hernia with slight wall thickening of the distal esophagus likely due to protrusion of gastric mucosa. Possibility of esophagitis not excluded. LIVER: Liver exhibits normal size measuring approximately 16.3 cm in CC dimension. No obvious hepatic masses or collections. GALLBLADDER AND BILE DUCTS: Gallbladder physiologically distended. No evidence of intraluminal gallbladder calculi. PANCREAS: Pancreas unremarkable. No pancreatic masses collections or calcifications. SPLEEN: Spleen exhibits normal size and attenuation pattern without mass collection or calcification. ADRENALS: There are no adrenal lesions seen. KIDNEYS AND URETERS: The kidneys demonstrate relatively symmetric size. No evidence of nephrolithiasis or hydronephrosis. BLADDER: Urinary bladder is incompletely distended which presumably in part accounts for thick-walled appearance. Muscular hypertrophy may contribute. Correlation with urinalysis recommended to exclude the possibility UTI/ cystitis. REPRODUCTIVE: The prostate gland measures approximately 3.66 cm in transverse dimension. APPENDIX: The appendix appears unremarkable best seen on axial image number [id number]. BOWEL: Evaluation of the bowel is limited due to the lack of oral contrast material. Stomach is distended with food debris liquid and air. . Visualized loops of small bowel exhibit normal contour and caliber. No evidence acute mechanical small bowel obstruction. Large amount of stool seen throughout the colon consistent with fecal retention/constipation. PERITONEUM: Unremarkable. No fluid collection. No free air. There is a small fat containing umbilical hernia. LYMPH NODES: Unremarkable. No enlarged lymph nodes. VASCULATURE: Unremarkable. No aortic aneurysm. BONES: No fracture or destructive lesion. OTHER FINDINGS: None. IMPRESSION: No acute intra abdominal pathology. . Large amount of stool seen throughout the colon consistent with constipation. Consistent with constipation as above. Patient reassessment:after toradol and flexeril; pt feeling better; vitals stable. colace given po. Discussed all results with patient in depth pt was advised to increased fluids, increase fiber, f/u with pmd, f/u with back specialist within the next 2 days. pt was advised to return if symptoms worsen, persist or if new symptoms develop. Impression: back pain Motrin every 6 hours as needed for pain increase fluids increase fiber Follow up with primary care physician within the next 2 days Follow up with the back specialist within the next 2 days. Return immediately if symptoms worsen persist or if new symptoms develop: High fevers, increasing pain, vomiting, diarrhea or any other concerning symptoms develop (Azoia,Susan T) - Lab Interpretations Microbiology Results: Microbiology Results 08/10/17 15:55 Urine Urine Culture - Final No Growth (<1,000 CFU/ML) Lab Results: 08/10/17 15:55 08/10/17 15:55 Lab Results 08/10/17 15:55: WBC 6.4, RBC 4.42, Hgb 14.1, Hct 39.6 L, MCV 89.6 D, MCH 31.9, MCHC 35.6, RDW 13.0, Plt Count 239, MPV 9.5, Gran % 41.3 L, Lymph % (Auto) 49.0 H, [place] % (Auto) 7.7 H, Eos % (Auto) 1.7, Baso % (Auto) 0.3, Gran # 2.64, Lymph # (Auto) 3.1, [place] # (Auto) 0.5, Eos # (Auto) 0.1, Baso # (Auto) 0.02 08/10/17 15:55: Sodium 141, Potassium 4.2, Chloride 102, Carbon Dioxide 27, Anion Gap 16, BUN 11, Creatinine 1.0, Est GFR ( Amer) > 60, Est GFR (Non- Af Amer) > 60, Random Glucose 87, Calcium 8.9, Total Bilirubin 0.3, AST 20, ALT 33, Alkaline Phosphatase 41, Total Protein 7.1, Albumin 4.2, Globulin 2.9, Albumin/Globulin Ratio 1.4, Lipase 79 08/10/17 15:55: Urine Color Yellow, Urine Appearance Clear, Urine pH 6.0, Ur Specific [place] >= 1.030, Urine Protein Negative, Urine Glucose (UA) Negative, Urine Ketones Negative, Urine Blood Negative, Urine Nitrate Negative, Urine Bilirubin Negative, Urine Urobilinogen 0.2, Ur Leukocyte Esterase Negative - RAD Interpretation Radiology Orders: 08/10/17 15:35 ABD & PELVIS W/O PO OR IV CONT [CT] Stat - Medication Orders Current Medication Orders: Discontinued Medications Cyclobenzaprine HCl (Flexeril) 10 mg PO STAT STA Stop: 08/10/17 15:36 Last Admin: 08/10/17 16:02 Dose: Not Given Non-Admin Reason: Patient Refused Cyclobenzaprine HCl (Flexeril) 10 mg PO STAT STA Stop: 08/10/17 17:59 Last Admin: 08/10/17 18:22 Dose: 10 mg Docusate Sodium (Colace) 100 mg PO STAT STA Stop: 08/10/17 18:00 Last Admin: 08/10/17 18:22 Dose: 100 mg Sodium Chloride (Sodium Chloride 0.9%) 1,000 mls @ 999 mls/hr IV .Q1H1M STA Stop: 08/10/17 16:35 Last Admin: 08/10/17 16:02 Dose: 999 mls/hr eMAR Start Stop Document 08/10/17 16:02 HI (Rec: 08/10/17 16:02 HI [id number]) Intravenous Solution Start Date 08/10/17 Start Time 16:02 Ketorolac Tromethamine (Toradol) 30 mg IVP STAT STA Stop: 08/10/17 15:36 Last Admin: 08/10/17 16:02 Dose: Not Given Non-Admin Reason: Patient Refused Ketorolac Tromethamine (Toradol) 30 mg IVP STAT STA Stop: 08/10/17 17:59 Last Admin: 08/10/17 18:22 Dose: 30 mg MAR Pain Assessment Document 08/10/17 18:22 HI (Rec: 08/10/17 18:22 HI [id number]) Pain Reassessment Is this a pain reassessment? Yes Sleep Is patient sleeping during reassessment? No Presence of Pain Presence of Pain Yes IVP Administration Document 08/10/17 18:22 HI (Rec: 08/10/17 18:22 HI [id number]) Charges for Administration # of IVP Administrations 1 Disposition/Present on Arrival - Present on Arrival Any Indicators Present on Arrival: No History of DVT/PE: No History of Uncontrolled Diabetes: No Urinary Catheter: No History of Decub. Ulcer: No History Surgical Site Infection Following: None - Disposition Have Diagnosis and Disposition been Completed?: Yes Disposition Time: 18:06 Patient Plan: Discharge - Disposition Diagnosis: Back pain, Constipation Disposition: HOME/ ROUTINE Condition: GOOD Discharge Instructions (ExitCare): Constipation in Adults, Low Back Pain (DC) Additional Instructions: Motrin every 6 hours as needed for pain increase fluids increase fiber Follow up with primary care physician within the next 2 days Follow up with the back specialist within the next 2 days. Return immediately if symptoms worsen persist or if new symptoms develop: High fevers, increasing pain, vomiting, diarrhea or any other concerning symptoms develop Prescriptions: Docusate [Colace] 100 mg PO BID #30 cap Ibuprofen [Motrin] 600 mg PO Q6H PRN #20 tab PRN Reason: pain/fever reduction Referrals: Juan Carlos Feng MD [Primary Care Provider] - Follow up with primary Kwabena Verduzco MD [Staff Provider] - Follow up with primary Natanael Munson MD [Medical Doctor] - Follow up with primary Forms: [employer] (Maldivian)
[2017-08-10 16:12] LABS: BASO # 0.02 K/mm3 (0.0-2.0); BASO % 0.3 % (0.0-3.0); EOS # 0.1 (0.0-0.7); EOS % 1.7 % (1.5-5.0); GRAN # 2.64 (1.4-6.5); GRAN % 41.3 % (50.0-68.0); HEMOGLOBIN 14.1 g/dL (14.0-18.0); LYMPH # 3.1 (1.2-3.4); MEAN CELL VOLUME 89.6 fl (80.0-105.0); MEAN CORPUSCULAR HEMOGLOBIN 31.9 pg (25.0-35.0); MEAN CORPUSCULAR HGB CONC 35.6 g/dl (31.0-37.0); MEAN PLATELET VOLUME 9.5 fl (7.0-11.0); MONO # 0.5 (0.1-0.6); MONO % 7.7 % (1.0-6.0); RBC 4.42 10^6/uL (3.5-6.1); URINE BILIRUBIN NEGATIVE (NEGATIVE); URINE BLOOD NEGATIVE (NEGATIVE); URINE GLUCOSE (UA) NEGATIVE (NEGATIVE); URINE LEUKOCYTE ESTERASE NEGATIVE Leu/uL (NEGATIVE); URINE PROTEIN NEGATIVE mg/dL (<30 mg/dL); URINE UROBILINOGEN 0.2 E.U./dL (<1 E.U./dL); WHITE BLOOD COUNT 6.4 10^3/ul (4.5-11.0)
[2017-08-10 16:17] LABS: ALB/GLOB RATIO 1.4 (1.1-1.8); ALBUMIN 4.2 g/dL (3.0-4.8); ALT/SGPT 33 U/L (7-56); AST/SGOT 20 U/L (17-59); BLOOD UREA NITROGEN 11 mg/dL (7-21); CALCIUM 8.9 mg/dL (8.4-10.5); GFR AFRICAN-AMERICAN > 60; GFR NON-AFRICAN AMERICAN > 60; LIPASE 79 U/L (23-300)
[2017-08-10 16:29] LABS: URINE APPEARANCE CLEAR (CLEAR); URINE COLOR YELLOW (YELLOW)
--- NOTE | 2017-08-10 17:30 | CT ---
PROCEDURE: CT scan abdomen pelvis dated 08/10/2017 HISTORY: Abdominal pain . Technologist notation indicates prior left kidney surgery. COMPARISON: Comparison made with CT scan abdomen pelvis dated 12/02/2017. . TECHNIQUE: Contiguous axial images of the abdomen and pelvis performed without oral or intravenous contrast material. Additional 2 dimensional 2D reformats generated. This CT exam was performed using one or more of the following dose reduction techniques: Automated exposure control, adjustment of the mA and/or kV according to patient size, and/or use of iterative reconstruction technique. Radiation dose: Total exam DLP = 446.99 mGy-cm. FINDINGS: LOWER THORAX: Minor passive/dependent type atelectasis both posterior lower lung zones. Heart mildly enlarged. . No significant pericardial effusion. There is a small hiatal hernia with slight wall thickening of the distal esophagus likely due to protrusion of gastric mucosa. Possibility of esophagitis not excluded. LIVER: Liver exhibits normal size measuring approximately 16.3 cm in CC dimension. No obvious hepatic masses or collections. GALLBLADDER AND BILE DUCTS: Gallbladder physiologically distended. No evidence of intraluminal gallbladder calculi. PANCREAS: Pancreas unremarkable. No pancreatic masses collections or calcifications. SPLEEN: Spleen exhibits normal size and attenuation pattern without mass collection or calcification. ADRENALS: There are no adrenal lesions seen. KIDNEYS AND URETERS: The kidneys demonstrate relatively symmetric size. No evidence of nephrolithiasis or hydronephrosis. BLADDER: Urinary bladder is incompletely distended which presumably in part accounts for thick-walled appearance. Muscular hypertrophy may contribute. Correlation with urinalysis recommended to exclude the possibility UTI/ cystitis. REPRODUCTIVE: The prostate gland measures approximately 3.66 cm in transverse dimension. APPENDIX: The appendix appears unremarkable best seen on axial image number [id number]. BOWEL: Evaluation of the bowel is limited due to the lack of oral contrast material. Stomach is distended with food debris liquid and air. . Visualized loops of small bowel exhibit normal contour and caliber. No evidence acute mechanical small bowel obstruction. Large amount of stool seen throughout the colon consistent with fecal retention/constipation. PERITONEUM: Unremarkable. No fluid collection. No free air. There is a small fat containing umbilical hernia. LYMPH NODES: Unremarkable. No enlarged lymph nodes. VASCULATURE: Unremarkable. No aortic aneurysm. BONES: No fracture or destructive lesion. OTHER FINDINGS: None. IMPRESSION: No acute intra abdominal pathology. . Large amount of stool seen throughout the colon consistent with constipation. Consistent with constipation as above.
[2017-08-10 18:44] VITALS: BP 124/72; PULSE 75; RESP 18; TEMP 98.3
== END 2017-08-10 18:43 | disposition home or self-care (01) ==
LOC: ED 14:59
DX: K59.00 Constipation, unspecified (principal); M54.5 Low back pain; F17.210 Nicotine dependence, cigarettes, uncomplicated; F20.9 Schizophrenia, unspecified
CPT/HCPCS: 74176; 80053; 81003; 83690; 85025; 87086; 96374; 99283; J1885; J7030

== ENCOUNTER 2017-08-12 22:44 | Emergency (ER) | payer OTHER ==
[2017-08-12 22:49] VITALS: BMI 25.8
[2017-08-12 23:05] VITALS: RESP 18; TEMP 98.6; O2SAT 98
[2017-08-12] MEDS ORDERED: Peg-Electrolyte Oral Soln 4L (Golytely) PO ONE (23:16)
--- NOTE | 2017-08-12 23:30 | ED PDOC ---
Arrival/HPI - General Chief Complaint: GI Problem Time Seen by Provider: 08/12/17 23:05 Historian: Patient - History of Present Illness Narrative History of Present Illness (Text): 08/12/17 23:08 36 year old male, whose past medical history includes depression, anxiety, and schizophrenia, presents to the emergency department complaining of constipation that began 2 weeks ago. Patient was seen and evaluated in the ER 2 days ago for similar symptoms and was given Colace with still no bowel movement. Patient is also complaining of bilateral lower back pain, but denies any fever, chills, chest pain, shortness of breath, abdominal pain, nausea, vomiting, diarrhea, urinary symptoms, back pain, neck pain, headache, dizziness, or any other complaints. Time/Duration: Other (2 weeks) Symptom Onset: Gradual Symptom Course: Unchanged Activities at Onset: Light Context: Home Past Medical History - Provider Review Nursing Documentation Reviewed: Yes - Past History Past History: No Previous - Infectious Disease Hx of Infectious Diseases: None - Tetanus Immunization Tetanus Immunization: Unknown - Cardiac Hx Cardiac Disorders: No - Pulmonary Hx Respiratory Disorders: Yes Hx Asthma: Yes - Neurological Hx Neurological Disorder: No - HEENT Hx HEENT Disorder: No - Renal Hx Renal Disorder: Yes Other/Comment: hx of kidney infection with sx. - Endocrine/Metabolic Hx Endocrine Disorders: No - Hematological/Oncological Hx Blood Disorders: No - Integumentary Hx Dermatological Disorder: No - Musculoskeletal/Rheumatological Hx Musculoskeletal Disorders: No - Gastrointestinal Hx Gastrointestinal Disorders: No - Genitourinary/Gynecological Hx Genitourinary Disorders: No Hx Sexually Transmitted Diseases: No - Psychiatric Hx Psychophysiologic Disorder: Yes Hx Anxiety: Yes Hx Physical Abuse: No Hx Schizophrenia: Yes Hx Substance Use: No - Past Surgical History Past Surgical History: Non-Contributing - Surgical History Other/Comment: LEFT KIDNEY SX - Anesthesia Hx Anesthesia: Yes Hx Anesthesia Reactions: No - Suicidal Assessment Feels Threatened In Home Enviroment: No Family/Social History - Physician Review Nursing Documentation Reviewed: Yes Family/Social History: No Known Family HX Smoking Status: Heavy Smoker > 10 Cigarettes Daily Hx Alcohol Use: No (history) Hx Substance Use: No Hx Substance Use Treatment: No Allergies/Home Meds Allergies/Adverse Reactions: Allergies No Known Allergies Allergy (Verified 08/12/17 23:05) Home Medications: Home Meds Medication Instructions Recorded Confirmed LORazepam [Ativan] 1 mg PO DAILY 03/06/17 05/30/18 Review of Systems - Physician Review All systems were reviewed & negative as marked: Yes - Review of Systems Constitutional: absent: Fevers, Other (Chills) Respiratory: absent: SOB Cardiovascular: absent: Chest Pain Gastrointestinal: Constipation. absent: Abdominal Pain, Diarrhea, Nausea, Vomiting Genitourinary Male: absent: Dysuria, Frequency, Hematuria Musculoskeletal: Back Pain (bilateral lower back pain). absent: Neck Pain Neurological: absent: Headache, Dizziness Physical Exam Vital Signs Reviewed: Yes Vital Signs Temp Pulse Resp BP Pulse Ox 08/12/17 23:04 98.6 F 69 18 116/76 98 Temperature: Afebrile Blood Pressure: Normal Pulse: Regular Respiratory Rate: Normal Appearance: Positive for: Well-Appearing, Non-Toxic, Comfortable Pain Distress: None Mental Status: Positive for: Alert and Oriented X 3 - Systems Exam Head: Present: Atraumatic, Normocephalic Pupils: Present: PERRL Extroacular Muscles: Present: EOMI Conjunctiva: Present: Normal Mouth: Present: Moist Mucous Membranes Neck: Present: Normal Range of Motion Respiratory/Chest: Present: Clear to Auscultation, Good Air Exchange. No: Respiratory Distress, Accessory Muscle Use Cardiovascular: Present: Regular Rate and Rhythm, Normal S1, S2. No: Murmurs Abdomen: No: Tenderness, Distention, Peritoneal Signs Back: Present: Normal Inspection Upper Extremity: Present: Normal Inspection. No: Cyanosis, Edema Lower Extremity: Present: Normal Inspection. No: Edema Neurological: Present: GCS=15, CN II-XII Intact, Speech Normal Skin: Present: Warm, Dry, Normal Color. No: Rashes Psychiatric: Present: Alert, Oriented x 3, Normal Insight, Normal Concentration Medical Decision Making ED Course and Treatment: 08/12/17 23:47 Impression: 36 year old male presents complaining of constipation for the past 2 weeks associated with bilateral lower back pain. Plan: -- Golytely -- Reassess and disposition Prior Visits: Notes and results from previous visits were reviewed. On 08/10/17 patient came in complaining of lower back pain. Patient was discharged. Progress Notes: 08/13/17 02:05 On reevaluation the patient feels better and is in no acute distress. Patient currently had a bowel movement. I have discussed the results and plan with the patient, who expresses understanding. Patient given the opportunity to ask question, all questions were answered and there is agreement with the plan to discharge the patient home. Patient is stable for discharge. Patient was instructed to follow up with physician/clinic in 1-2 days or return if symptoms persist/worsen or new concerning symptoms arise.. - Medication Orders Current Medication Orders: Discontinued Medications Ondansetron HCl (Zofran Odt) 8 mg PO STAT STA Stop: 08/13/17 01:16 Polyethylene Glycol/Electrolytes (Golytely) 4,000 ml PO ONCE ONE Stop: 08/12/17 23:17 Last Admin: 08/12/17 23:56 Dose: 4,000 ml - Scribe Statement The provider has reviewed the documentation as recorded by the Lubna Velez Provider Scribe Attestation: All medical record entries made by the Scribe were at my direction and personally dictated by me. I have reviewed the chart and agree that the record accurately reflects my personal performance of the history, physical exam, medical decision making, and the department course for this patient. I have also personally directed, reviewed, and agree with the discharge instructions and disposition. Disposition/Present on Arrival - Present on Arrival Any Indicators Present on Arrival: No History of DVT/PE: No History of Uncontrolled Diabetes: No Urinary Catheter: No History of Decub. Ulcer: No History Surgical Site Infection Following: None - Disposition Have Diagnosis and Disposition been Completed?: Yes Diagnosis: Constipation Disposition: HOME/ ROUTINE Disposition Time: 02:09 Patient Plan: Discharge Condition: GOOD Discharge Instructions (ExitCare): Constipation, Adult (DC) Referrals: Juan Carlos Feng MD [Primary Care Provider] - Follow up with primary Forms: [employer] (Guatemalan)
[2017-08-13 02:36] VITALS: BP 120/71; PULSE 70
== END 2017-08-13 02:35 | disposition home or self-care (01) ==
LOC: ED 22:44
DX: K59.00 Constipation, unspecified (principal); F17.210 Nicotine dependence, cigarettes, uncomplicated

== ENCOUNTER 2018-03-10 21:35 | Emergency (ER) | payer MEDICAID, OTHER ==
[2018-03-10 21:49] VITALS: BMI 26.6
[2018-03-10 21:54] VITALS: RESP 18
[2018-03-10 22:40] LABS: URINE BILIRUBIN NEGATIVE (NEGATIVE); URINE BLOOD NEGATIVE (NEGATIVE); URINE GLUCOSE (UA) NEGATIVE (NEGATIVE); URINE LEUKOCYTE ESTERASE NEGATIVE Leu/uL (NEGATIVE); URINE PROTEIN NEGATIVE mg/dL (<30 mg/dL); URINE UROBILINOGEN 0.2 E.U./dL (<1 E.U./dL)
[2018-03-10 22:46] LABS: URINE APPEARANCE CLEAR (CLEAR); URINE COLOR YELLOW (YELLOW)
[2018-03-10 22:49] LABS: BASO # 0.01 K/mm3 (0.0-2.0); BASO % 0.2 % (0.0-3.0); EOS # 0.1 (0.0-0.7); GRAN # 2.24 (1.4-6.5); HEMOGLOBIN 15.2 g/dL (14.0-18.0); LYMPH # 2.5 (1.2-3.4); MEAN CELL VOLUME 91.1 fl (80.0-105.0); MEAN CORPUSCULAR HEMOGLOBIN 32.2 pg (25.0-35.0); MEAN CORPUSCULAR HGB CONC 35.3 g/dl (31.0-37.0); MEAN PLATELET VOLUME 10.3 fl (7.0-11.0); MONO # 1.3 (0.1-0.6); MONO % 20.8 % (1.0-6.0); PLATELET COUNT 220 10^3/uL (120.0-450.0); RBC 4.72 10^6/uL (3.5-6.1); RED CELL DISTRIBUTION WIDTH 13.1 % (11.5-14.5); WHITE BLOOD COUNT 6.1 10^3/uL (4.5-11.0)
[2018-03-10 22:53] LABS: ACETAMINOPHEN < 10.0 ug/ml (10.0-20.0); ALB/GLOB RATIO 1.3 (1.1-1.8); ALBUMIN 4.7 g/dL (3.0-4.8); ALT/SGPT 40 U/L (7-56); AST/SGOT 42 U/L (17-59); BLOOD UREA NITROGEN 9 mg/dL (7-21); CALCIUM 9.2 mg/dL (8.4-10.5); GFR NON-AFRICAN AMERICAN > 60; SALICYLATE < 1 mg/dL (2.0-20.0)
[2018-03-10 23:02] LABS: OPIATES, UR NEGATIVE (NEGATIVE); PHENCYCLIDINE, UR NEGATIVE (NEGATIVE)
[2018-03-10 23:03] LABS: BARBITURATES, UR NEGATIVE (NEGATIVE); BENZODIAZEPINES, UR NEGATIVE (NEGATIVE)
[2018-03-11 00:30] LABS: BAND 7 % (0-2); BASOPHIL 2 % (0.0-1.0); LYMPHOCYTE 45 % (22.0-35.0); MONOCYTE 15 % (1.0-6.0); NEUTROPHIL 31 % (50.0-70.0); PLATELET ESTIMATE NORMAL (NORMAL)
[2018-03-11 00:58] VITALS: O2SAT 98
--- NOTE | 2018-03-11 01:21 | ED PDOC ---
Arrival/HPI - General Historian: Patient, Family - History of Present Illness Narrative History of Present Illness (Text): 03/11/18 00:57 37-year-old male with a history of schizoaffective disorder history of marijuana abuse and PCP use presents today requesting detox. Patient denies depression or suicidal ideation. He denies homicidal ideation. Patient denies chest pain or shortness of breath. No abdominal pain. No nausea or vomiting. Patient states he's been taking multiple Percocets and occasionally muscle relaxers to try to get high. Patient is requesting detox. Patient states he was in detox in the past and was on Suboxone. <Susan Duran - Last Filed: 03/11/18 02:23> <Fritz Nunes - Last Filed: 03/11/18 03:52> - General Chief Complaint: Psychiatric Evaluation Time Seen by Provider: 03/10/18 21:39 Past Medical History - Provider Review Nursing Documentation Reviewed: Yes - Travel History Have you recently traveled outside [place] w/in the past 3 mons?: No - Past History Past History: No Previous - Infectious Disease Hx of Infectious Diseases: None - Tetanus Immunization Tetanus Immunization: Unknown - Cardiac Hx Cardiac Disorders: No - Pulmonary Hx Respiratory Disorders: Yes Hx Asthma: Yes - Neurological Hx Neurological Disorder: No - HEENT Hx HEENT Disorder: No - Renal Hx Renal Disorder: Yes Other/Comment: hx of kidney infection with sx. - Endocrine/Metabolic Hx Endocrine Disorders: No - Hematological/Oncological Hx Blood Disorders: No - Integumentary Hx Dermatological Disorder: No - Musculoskeletal/Rheumatological Hx Musculoskeletal Disorders: No - Gastrointestinal Hx Gastrointestinal Disorders: No - Genitourinary/Gynecological Hx Genitourinary Disorders: No Hx Sexually Transmitted Diseases: No - Psychiatric Hx Psychophysiologic Disorder: Yes Hx Anxiety: Yes Hx Physical Abuse: No Hx Schizophrenia: Yes Hx Substance Use: No - Past Surgical History Past Surgical History: Non-Contributing - Surgical History Other/Comment: LEFT KIDNEY SX - Anesthesia Hx Anesthesia: Yes Hx Anesthesia Reactions: No - Suicidal Assessment Feels Threatened In Home Enviroment: No <Susan Duran - Last Filed: 03/11/18 02:23> Family/Social History - Physician Review Nursing Documentation Reviewed: Yes Family/Social History: Unknown Family HX Smoking Status: Heavy Smoker > 10 Cigarettes Daily Hx Alcohol Use: No (history) Hx Substance Use: No Hx Substance Use Treatment: No <Susan Duran - Last Filed: 03/11/18 02:23> Allergies/Home Meds <Susan Duran - Last Filed: 03/11/18 02:23> <Fritz Nunes - Last Filed: 03/11/18 03:52> Allergies/Adverse Reactions: Allergies No Known Allergies Allergy (Verified 03/10/18 21:49) Review of Systems - Review of Systems Constitutional: absent: Fatigue, Fevers Respiratory: absent: SOB, Cough Cardiovascular: absent: Chest Pain, Palpitations Gastrointestinal: absent: Abdominal Pain, Nausea, Vomiting Musculoskeletal: absent: Arthralgias, Back Pain, Neck Pain Skin: absent: Rash, Pruritis Neurological: absent: Headache, Dizziness Psychiatric: absent: Anxiety, Depression, Suicidal Ideation <Susan Duran - Last Filed: 03/11/18 02:23> Physical Exam Vital Signs Reviewed: Yes Vital Signs Temp Pulse Resp BP Pulse Ox 03/10/18 21:50 99.0 F 110 H 18 118/78 97 Temperature: Afebrile Blood Pressure: Normal Pulse: Tachycardic Respiratory Rate: Normal Appearance: Positive for: Well-Appearing, Non-Toxic, Comfortable Pain Distress: None Mental Status: Positive for: Alert and Oriented X 3 - Systems Exam Head: Present: Atraumatic Mouth: Present: Moist Mucous Membranes Neck: Present: Normal Range of Motion Respiratory/Chest: Present: Clear to Auscultation, Good Air Exchange. No: Respiratory Distress, Accessory Muscle Use Cardiovascular: Present: Regular Rate and Rhythm, Normal S1, S2. No: Murmurs Abdomen: No: Tenderness, Rebound, Guarding Upper Extremity: Present: Normal ROM Lower Extremity: Present: Normal ROM Neurological: Present: GCS=15, Speech Normal Skin: Present: Warm, Dry, Normal Color. No: Rashes Psychiatric: Present: Alert, Oriented x 3 <Susan Duran - Last Filed: 03/11/18 02:23> Vital Signs Temp Pulse Resp BP Pulse Ox 03/11/18 00:58 99 H 18 98 03/10/18 21:50 99.0 F 110 H 18 118/78 97 <Fritz Nunes - Last Filed: 03/11/18 03:52> Medical Decision Making ED Course and Treatment: 03/11/18 00:59 Patient is nontoxic well-appearing in no distress. requesting detox. CBC WNL CMP WNL Tylenol WNL Salicylate WNL Alcohol level 60 Urine drug screen wnl UA; wnl cxr: wnl ekg normal sinus rhythm at 90 bpm normal axis normal intervals no ST elevations pt reassessment; pt resting comfortably in er. no distress. pt is medically cleared for PES evaluation and psychiatric/detox transfer Patient was seen and evaluated by PES screener: ligia 03/11/18 02:23 case signed out to dr. nunes pending disposition - Lab Interpretations Lab Results: 03/10/18 22:00 03/10/18 22:00 Lab Results 03/10/18 22:00: Alcohol, Quantitative 60 H 03/10/18 22:00: Salicylates < 1 L, Acetaminophen < 10.0 L 03/10/18 22:00: Urine Opiates Screen Negative, Urine Methadone Screen Negative, Ur Barbiturates Screen Negative, Ur Phencyclidine Scrn Negative, Ur Amphetamines Screen Negative, U Benzodiazepines Scrn Negative, U Oth Cocaine Metabols Negative, U Cannabinoids Screen Negative 03/10/18 22:00: Sodium 138, Potassium 3.3 L, Chloride 102, Carbon Dioxide 26, Anion Gap 14, BUN 9, Creatinine 1.0, Est GFR ( Amer) > 60, Est GFR (Non- Af Amer) > 60, Random Glucose 85, Calcium 9.2, Total Bilirubin 0.5, AST 42, ALT 40, Alkaline Phosphatase 68, Total Protein 8.3, Albumin 4.7, Globulin 3.6, Albumin/Globulin Ratio 1.3 03/10/18 22:00: Urine Color Yellow, Urine Appearance Clear, Urine pH 6.0, Ur Specific [place] 1.010, Urine Protein Negative, Urine Glucose (UA) Negative, Urine Ketones Negative, Urine Blood Negative, Urine Nitrate Negative, Urine Arvin irubin Negative, Urine Urobilinogen 0.2, Ur Leukocyte Esterase Negative 03/10/18 22:00: WBC 6.1, RBC 4.72, Hgb 15.2, Hct 43.0, MCV 91.1, MCH 32.2, MCHC 35.3, RDW 13.1, Plt Count 220, MPV 10.3, Gran % 37.0 L, Lymph % (Auto) 41.0 H, [place] % (Auto) 20.8 H, Eos % (Auto) 1.0 L, Baso % (Auto) 0.2, Gran # 2.24, Lymph # (Auto) 2.5, [place] # (Auto) 1.3 H, Eos # (Auto) 0.1, Baso # (Auto) 0.01, Neutrophils % (Manual) 31 L, Band Neutrophils % 7 H, Lymphocytes % (Manual) 45 H , Monocytes % (Manual) 15 H, Basophils % (Manual) 2 H, Platelet Evaluation Normal - RAD Interpretation Radiology Orders: 03/10/18 22:49 CHEST PORTABLE [RAD] Stat <Olvin Duranina T - Last Filed: 03/11/18 02:23> ED Course and Treatment: 03/11/18 03:43 Patient accepted for transfer to [facility].Accepted by .Transfer to ED aware/accepts. - Lab Interpretations Lab Results: 03/10/18 22:00 03/10/18 22:00 Lab Results 03/10/18 22:00: Alcohol, Quantitative 60 H 03/10/18 22:00: Salicylates < 1 L, Acetaminophen < 10.0 L 03/10/18 22:00: Urine Opiates Screen Negative, Urine Methadone Screen Negative, Ur Barbiturates Screen Negative, Ur Phencyclidine Scrn Negative, Ur Amphetamines Screen Negative, U Benzodiazepines Scrn Negative, U Oth Cocaine Metabols Negative, U Cannabinoids Screen Negative 03/10/18 22:00: Sodium 138, Potassium 3.3 L, Chloride 102, Carbon Dioxide 26, Anion Gap 14, BUN 9, Creatinine 1.0, Est GFR ( Amer) > 60, Est GFR (Non- Af Amer) > 60, Random Glucose 85, Calcium 9.2, Total Bilirubin 0.5, AST 42, ALT 40, Alkaline Phosphatase 68, Total Protein 8.3, Albumin 4.7, Globulin 3.6, Albumin/Globulin Ratio 1.3 03/10/18 22:00: Urine Color Yellow, Urine Appearance Clear, Urine pH 6.0, Ur Specific [place] 1.010, Urine Protein Negative, Urine Glucose (UA) Negative, Urine Ketones Negative, Urine Blood Negative, Urine Nitrate Negative, Urine Bilirubin Negative, Urine Urobilinogen 0.2, Ur Leukocyte Esterase Negative 03/10/18 22:00: WBC 6.1, RBC 4.72, Hgb 15.2, Hct 43.0, MCV 91.1, MCH 32.2, MCHC 35.3, RDW 13.1, Plt Count 220, MPV 10.3, Gran % 37.0 L, Lymph % (Auto) 41.0 H, [place] % (Auto) 20.8 H, Eos % (Auto) 1.0 L, Baso % (Auto) 0.2, Gran # 2.24, Lymph # (Auto) 2.5, [place] # (Auto) 1.3 H, Eos # (Auto) 0.1, Baso # (Auto) 0.01, N eutrophils % (Manual) 31 L, Band Neutrophils % 7 H, Lymphocytes % (Manual) 45 H, Monocytes % (Manual) 15 H, Basophils % (Manual) 2 H, Platelet Evaluation Normal - RAD Interpretation Radiology Orders: 03/10/18 22:49 CHEST PORTABLE [RAD] Stat <Fritz Nunes - Last Filed: 03/11/18 03:52> - PA / DIRECTOR OF CAREER SERVICES / Resident Statement / has reviewed & agrees with the documentation as recorded. / has examined the patient and agrees with the treatment plan. <Fritz Nunes - Last Filed: 03/11/18 03:52> Disposition/Present on Arrival - Present on Arrival Any Indicators Present on Arrival: No History of DVT/PE: No History of Uncontrolled Diabetes: No Urinary Catheter: No History of Decub. Ulcer: No History Surgical Site Infection Following: None - Disposition Have Diagnosis and Disposition been Completed?: Yes Disposition Time: 01:00 <Susan Duran - Last Filed: 03/11/18 02:23> - Present on Arrival Any Indicators Present on Arrival: No History of DVT/PE: No History of Uncontrolled Diabetes: No Urinary Catheter: No History of Decub. Ulcer: No History Surgical Site Infection Following: None - Disposition Have Diagnosis and Disposition been Completed?: Yes Disposition Time: 03:46 <Fritz Nunes - Last Filed: 03/11/18 03:52> - Disposition Diagnosis: Opioid abuse, Opioid-induced mood disorder Disposition: Transfer [facility] Patient Problems: Current Active Problems Problem Status Onset Opioid abuse Acute Opioid-induced mood disorder Acute Condition: STABLE Forms: [facility] ([place])
[2018-03-11 04:03] VITALS: BP 108/56; PULSE 100
[2018-03-11 04:27] VITALS: TEMP 98.7
--- NOTE | 2018-03-11 09:37 | RAD ---
Date of service: 03/10/2018 HISTORY: pes COMPARISON: 05/30/2017 FINDINGS: LUNGS: No active pulmonary disease. PLEURA: No significant pleural effusion identified, no pneumothorax apparent. CARDIOVASCULAR: No aortic atherosclerotic calcification present. Normal cardiac size. No pulmonary vascular congestion. OSSEOUS STRUCTURES: No significant abnormalities. VISUALIZED UPPER ABDOMEN: Normal. OTHER FINDINGS: None. IMPRESSION: No active disease.
--- NOTE | 2018-03-11 18:08 | CARD ---
APPROVED REPORT Date of service: 03/10/2018 EKG Measurement Heart [id number] <Conclusion> Normal sinus rhythm Normal ECG
== END 2018-03-11 04:41 | disposition short-term general hospital (02) ==
LOC: ED 21:35
DX: F11.19 Opioid abuse with unspecified opioid-induced disorder (principal); F11.10 Opioid abuse, uncomplicated; F17.210 Nicotine dependence, cigarettes, uncomplicated

== ENCOUNTER 2018-05-21 08:48 | Outpatient (CLI) | payer MEDICAID | END 2018-05-21 08:49 | disposition home or self-care (01) | LOC: RAD 08:48 ==

== ENCOUNTER 2018-08-03 13:06 | Outpatient (CLI) | payer MEDICAID | END 2018-08-03 13:07 | disposition home or self-care (01) | LOC: RAD 13:06 ==